=== PATIENT | female | born 1930 | race Hispanic/Latino ===

== ENCOUNTER 2017-11-01 08:55 | Observation (INO) | payer MEDICARE ==
[2017-11-01 09:12] VITALS: BMI 27.2
[2017-11-01] MEDS ORDERED: Sodium Chloride 0.9% 500 ML IV STA (09:37)
[2017-11-01 09:42] LABS: BASO # 0.02 K/mm3 (0.0-2.0); BASO % 0.3 % (0.0-3.0); GRAN # 6.1 (1.4-6.5); GRAN % 79.8 % (50.0-68.0); HEMOGLOBIN 15.6 g/dL (12.0-16.0); LYMPH # 0.7 (1.2-3.4); LYMPH % 8.9 % (22.0-35.0); MEAN CORPUSCULAR HEMOGLOBIN 30.4 pg (25.0-35.0); MEAN CORPUSCULAR HGB CONC 32.7 g/dl (31.0-37.0); MEAN PLATELET VOLUME 10.5 fl (7.0-11.0); MONO # 0.8 (0.1-0.6); RBC 5.13 10^6/uL (3.5-6.1); RED CELL DISTRIBUTION WIDTH 14.3 % (11.5-14.5); WHITE BLOOD COUNT 7.6 10^3/ul (4.5-11.0)
[2017-11-01 09:53] LABS: INR 2.11 (0.93-1.08); PROTHROMBIN TIME 24.6 SECONDS (9.4-12.5)
[2017-11-01 10:02] LABS: AMYLASE 67 U/L (35-125); CALCIUM 9.3 mg/dL (8.4-10.5); GFR AFRICAN-AMERICAN > 60; GFR NON-AFRICAN AMERICAN > 60; LIPASE 40 U/L (23-300)
[2017-11-01 10:08] LABS: ALB/GLOB RATIO 1.4 (1.1-1.8); ALBUMIN 4.1 g/dL (3.0-4.8); ALT/SGPT 28 U/L (7-56); AST/SGOT 39 U/L (14-36); BLOOD UREA NITROGEN 19 mg/dL (7-21)
[2017-11-01 10:10] LABS: B-TYPE NATRIURETIC PEPTIDE 1950 pg/mL (0-450)
[2017-11-01 10:12] LABS: TROPONIN I < 0.01 ng/mL
--- NOTE | 2017-11-01 10:15 | ED PDOC ---
Arrival/HPI - General Chief Complaint: GI Problem Time Seen by Provider: 11/01/17 09:27 Historian: Patient - History of Present Illness Narrative History of Present Illness (Text): 11/01/17 10:11 86-year-old female presents today with nausea and vomiting since yesterday.patient states she vomited multiple times yesterday. She denies chest pain or shortness of breath. Patient states she's been coughing slightly. She denies fevers or chills. She denies diarrhea. She is complaining of some vague upper abdominal pain. She denies chest pain or shortness of breath. She denies dizziness but is complaining of generalized weakness. Patient states she woke up this morning with a posterior headache. She denies blurred vision. She denies lower leg swelling. Denies urinary symptoms. no other complaints. Past Medical History - Provider Review Nursing Documentation Reviewed: Yes - Travel History Have you recently traveled outside [place] w/in the past 3 mons?: No - Infectious Disease Hx of Infectious Diseases: None - Reproductive Menopause: Yes - Cardiac Hx Cardiac Disorders: Yes Hx Atrial Fibrillation: Yes Hx Hypertension: Yes - Pulmonary Hx Respiratory Disorders: No - Neurological HX Cerebrovascular Accident: Yes (x2) - HEENT Hx Cataracts: Yes Other/Comment: [place]. bilateral hearing aid - Renal Hx Renal Disorder: No - Endocrine/Metabolic Hx Endocrine Disorders: No - Hematological/Oncological Hx Blood Transfusions: No Hx Blood Transfusion Reaction: No - Integumentary Hx Dermatological Disorder: No - Musculoskeletal/Rheumatological Hx Musculoskeletal Disorders: No - Gastrointestinal Hx Gastrointestinal Disorders: No - Genitourinary/Gynecological Hx Urinary Tract Infection: Yes - Psychiatric Hx Substance Use: No - Surgical History Hx Cholecystectomy: Yes - Anesthesia Hx Anesthesia: Yes Hx Anesthesia Reactions: No Hx Malignant Hyperthermia: No - Suicidal Assessment Feels Threatened In Home Enviroment: No Family/Social History - Physician Review Nursing Documentation Reviewed: Yes Family/Social History: Unknown Family HX Smoking Status: Former Smoker Hx Alcohol Use: No Hx Substance Use: No Allergies/Home Meds Allergies/Adverse Reactions: Allergies No Known Allergies Allergy (Verified 03/20/16 12:25) Home Medications: Home Meds Medication Instructions Recorded Confirmed Warfarin Sodium [Coumadin] 4 mg PO DAILY 09/13/15 11/01/17 [id number] [Cardizem] 30 mg PO QID 09/13/15 11/01/17 Losartan [Cozaar] 25 mg PO DAILY 03/20/16 11/01/17 Pantoprazole [Protonix EC Tab] 20 mg PO DAILY 11/01/17 11/01/17 Review of Systems - Review of Systems Constitutional: Fatigue. absent: Fevers ENT: absent: Sore Throat, Sinus Congestion Respiratory: Cough. absent: SOB Cardiovascular: absent: Chest Pain, Palpitations Gastrointestinal: Abdominal Pain, Nausea, Vomiting. absent: Constipation, Diarrhea Genitourinary Female: absent: Dysuria, Frequency, Hematuria Musculoskeletal: absent: Arthralgias, Back Pain, Neck Pain Skin: absent: Rash, Pruritis Neurological: absent: Headache, Dizziness Psychiatric: absent: Anxiety, Depression, Suicidal Ideation Physical Exam Vital Signs Reviewed: Yes Vital Signs Temp Pulse Resp BP Pulse Ox 11/01/17 12:20 110 H 122/90 11/01/17 11:24 127 H 18 133/74 95 11/01/17 08:56 99.1 F 125 H 20 138/98 H 95 Temperature: Afebrile Blood Pressure: Normal Pulse: Tachycardic Respiratory Rate: Normal Appearance: Positive for: Well-Appearing, Non-Toxic, Comfortable Pain Distress: None Mental Status: Positive for: Alert and Oriented X 3 - Systems Exam Head: Present: Atraumatic Mouth: Present: Moist Mucous Membranes Neck: Present: Normal Range of Motion Respiratory/Chest: Present: Clear to Auscultation, Good Air Exchange. No: Respiratory Distress, Accessory Muscle Use Cardiovascular: Present: Irregular Rhythm, Tachycardic Abdomen: Present: Tenderness (+ upper abdominal tenderness, ruq, epigastric), Normal Bowel Sounds. No: Distention, Rebound, Guarding Back: Present: Normal Inspection. No: CVA Tenderness, Midline Tenderness, Paraspinal Tenderness Upper Extremity: Present: Normal ROM Lower Extremity: Present: Normal ROM Neurological: Present: GCS=15, Speech Normal Skin: Present: Warm, Dry, Normal Color. No: Rashes Psychiatric: Present: Alert, Oriented x 3 Medical Decision Making ED Course and Treatment: 11/01/17 10:21 Patient is nontoxic well appearing; presenting with abdominal pain, n/v, weakness. CBC wnl CMP wnl Amylase wnl Lipase wnl Urinalysis trace blood, no leukocytes troponin; wnl bnp; elevated. CAT scan head; FINDINGS: HEMORRHAGE: No intracranial hemorrhage. BRAIN: There R old lacunar infarctions in the right caudate head, limon radiata, anterior basal ganglia, left basal ganglia, external capsule and anterior parietal subcortical white matter.. There are mild chronic microangiopathic changes. There is no mass, mass effect or abnormal extra-axial fluid collection. VENTRICLES: There is mild age-related global parenchymal volume loss and proportionate enlargement of the ventricles and cortical sulci. CALVARIUM: There is hyperostosis frontalis interna. PARANASAL SINUSES: There is moderate polypoid mucosal thickening in the right maxillary sinus, otherwise the included paranasal sinuses are predominantly clear. MASTOID AIR CELLS: Predominantly clear. OTHER FINDINGS: None. IMPRESSION: No acute intracranial abnormality. Old lacunar infarctions in the right caudate head, limon radiata, anterior basal ganglia, left basal ganglia, external capsule and anterior parietal subcortical white matter. Mild chronic microangiopathic changes and mild age-related global parenchymal volume loss. Chronic right maxillary sinusitis. ct abd/pelvis; FINDINGS: LOWER THORAX: There is dependent atelectasis in the lung bases. LIVER: The liver is normal in size and there is diffuse fatty infiltration. No gross lesion or ductal dilatation. GALLBLADDER AND BILE DUCTS: Surgically absent. PANCREAS: There is diffuse atrophy of the pancreas. No gross lesion or ductal dilatation. SPLEEN: Normal in size and appearance. ADRENALS: Mild thickening without discrete nodule. KIDNEYS AND URETERS: Normal in size and there is homogeneous enhancement without hydronephrosis. No solid mass. VASCULATURE: Atherosclerotic aortoiliac calcifications. No aortic aneurysm. BOWEL: The small bowel loops are normal in caliber. There is extensive sigmoid diverticulosis without CT evidence for acute diverticulitis APPENDIX: Normal appendix. PERITONEUM: No free fluid. No free air. LYMPH NODES: No enlarged lymph nodes. BLADDER: Grossly normal in appearance. REPRODUCTIVE: The uterus is normal in size. BONES: No acute fracture. Diffuse bone demineralization and multilevel degenerative disc disease. OTHER FINDINGS: There is a right inguinal hernia containing nonobstructed small bowel loops. There are bilateral fat containing inguinal hernias. IMPRESSION: 1. Right inguinal hernia containing nonobstructed small bowel loops. 2. Sigmoid diverticulosis without CT evidence for acute diverticulitis. 3. Fatty liver Patient reassessment:pt feeling better after zofran and 50cc NS bolus. hr remains elevated in Afib ranging from 110-135. pt given cardizem IV 5mg; HR improved now ranging from 90-95. pt denies cp or sob at present time. Discussed all results with patient and family in depth case discussed with dr. moncada as dr. villareal is patients PMD. accepts observational status admission to tele. will hold off on laxis as patient is without cp or sob at present time. cashier assistant is dr. oneill. Impression: rapid afib, elevated bnp, nausea/vomiting, abdominal pain admit observational status to tele. - Lab Interpretations Lab Results: 11/01/17 09:30 11/01/17 09:30 Lab Results 11/01/17 11:21: Urine Color Yellow, Urine Appearance Clear, Urine pH 7.0, Ur Specific [place] 1.010, Urine Protein Negative, Urine Glucose (UA) Negative, Urine Ketones Negative, Urine Blood Trace-lysed H, Urine Nitrate Negative, Urine Bilirubin Negative, Urine Urobilinogen 1.0 H, Ur Leukocyte Esterase Negative, Urine RBC 0 - 2, Urine WBC 0 - 2, Ur Epithelial Cells 0 - 2, Urine Bacteria Small 11/01/17 10:39: Influenza Typ A,B (EIA) Negative for flu a/b 11/01/17 09:30: WBC 7.6 D, RBC 5.13, Hgb 15.6, Hct 47.7, MCV 93.0, MCH 30.4, MCHC 32.7, RDW 14.3, Plt Count 153, MPV 10.5, Gran % 79.8 H, Lymph % (Auto) 8.9 L, [place] % (Auto) 11.0 H, Eos % (Auto) 0.0 L, Baso % (Auto) 0.3, Gran # 6.10, Lymph # (Auto) 0.7 L, [place] # (Auto) 0.8 H, Eos # (Auto) 0.0, Baso # (Auto) 0.02 11/01/17 09:30: Sodium 140, Potassium 5.0, Chloride 104, Carbon Dioxide 24, Anion Gap 17, BUN 19, Creatinine 0.8, Est GFR ( Amer) > 60, Est GFR (Non- Af Amer) > 60, Random Glucose 104, Calcium 9.3, Total Bilirubin 1.8 H, AST 39 H , ALT 28, Alkaline Phosphatase 83, Lactate Dehydrogenase 875 H, Total Creatine Kinase 115, Troponin I < 0.01 D, NT-Pro-B Natriuret Pep 1950 H, Total Protein 7.0, Albumin 4.1, Globulin 2.9, Albumin/Globulin Ratio 1.4, Amylase 67, Lipase 40 11/01/17 09:30: PT 24.6 H, INR 2.11 H, APTT 37.0 H - RAD Interpretation Radiology Orders: 11/01/17 09:28 CHEST PORTABLE [RAD] Stat 11/01/17 09:36 ABD & PELVIS IV CONTRAST ONLY [CT] Stat HEAD W/O CONTRAST [CT] Stat - Medication Orders Current Medication Orders: Discontinued Medications Diltiazem HCl (Cardizem) 5 mg IVP STAT STA Stop: 11/01/17 12:12 Last Admin: 11/01/17 12:20 Dose: 5 mg IVP Administration Document 11/01/17 12:20 SRE (Rec: 11/01/17 12:20 SRE [id number]) Charges for Administration # of IVP Administrations 1 NOV Pulse and Blood Pressure Document 11/01/17 12:20 SRE (Rec: 11/01/17 12:20 SRE [id number]) Pulse Pulse Rate (60-90 beats/min) 110 Blood Pressure Blood Pressure (100/60-150/90 mm Hg) 122/90 Sodium Chloride (Sodium Chloride 0.9%) 500 mls @ 999 mls/hr IV .Q31M STA Stop: 11/01/17 10:07 Last Admin: 11/01/17 10:07 Dose: 999 mls/hr eMAR Start Stop Document 11/01/17 10:07 SRE (Rec: 11/01/17 10:07 SRE [id number]) Intravenous Solution Start Date 11/01/17 Start Time 10:07 End Date 11/01/17 End time 10:40 Total Infusion Time 33 Ondansetron HCl (Zofran Inj) 4 mg IVP STAT STA Stop: 11/01/17 09:38 Last Admin: 11/01/17 10:07 Dose: 4 mg IVP Administration Document 11/01/17 10:07 SRE (Rec: 11/01/17 10:07 SRE [id number]) Charges for Administration # of IVP Administrations 1 Disposition/Present on Arrival - Present on Arrival Any Indicators Present on Arrival: No History of DVT/PE: No History of Uncontrolled Diabetes: No Urinary Catheter: No History of Decub. Ulcer: No History Surgical Site Infection Following: None - Disposition Have Diagnosis and Disposition been Completed?: Yes Diagnosis: Elevated brain natriuretic peptide (BNP) level, Rapid atrial fibrillation, Nausea and vomiting, Abdominal pain Disposition: HOSPITALIZED Disposition Time: 12:53 Patient Plan: Observation Condition: FAIR Referrals: Jose Roberto Villareal MD [Primary Care Provider] - Follow up with primary Forms: [employer] (Stateless)
[2017-11-01] MEDS ORDERED: Iohexol 350 MG/100 ML VIAL ONE (10:42)
--- NOTE | 2017-11-01 10:51 | RAD ---
HISTORY: nausea/vomiting COMPARISON: 07/20/2016. FINDINGS: LUNGS: The lungs are clear. PLEURA: No significant pleural effusion identified, no pneumothorax apparent. CARDIOVASCULAR: The heart is enlarged. OSSEOUS STRUCTURES: No significant abnormalities. VISUALIZED UPPER ABDOMEN: Normal. OTHER FINDINGS: None. IMPRESSION: No active pulmonary disease.
[2017-11-01 11:32] LABS: URINE BILIRUBIN NEGATIVE (NEGATIVE); URINE BLOOD TRACE-LYSED (NEGATIVE); URINE GLUCOSE (UA) NEGATIVE (NEGATIVE); URINE LEUKOCYTE ESTERASE NEGATIVE Leu/uL (NEGATIVE); URINE NITRATE NEGATIVE (NEGATIVE); URINE PROTEIN NEGATIVE mg/dL (<30 mg/dL)
--- NOTE | 2017-11-01 11:32 | CT ---
PROCEDURE: CT HEAD WITHOUT CONTRAST. HISTORY: Headache COMPARISON: 07/20/2016. TECHNIQUE: Axial computed tomography images were obtained through the head/brain without intravenous contrast. Radiation dose: Total exam DLP = 779.27 mGy-cm. This CT exam was performed using one or more of the following dose reduction techniques: Automated exposure control, adjustment of the mA and/or kV according to patient size, and/or use of iterative reconstruction technique. FINDINGS: HEMORRHAGE: No intracranial hemorrhage. BRAIN: There R old lacunar infarctions in the right caudate head, limon radiata, anterior basal ganglia, left basal ganglia, external capsule and anterior parietal subcortical white matter.. There are mild chronic microangiopathic changes. There is no mass, mass effect or abnormal extra-axial fluid collection. VENTRICLES: There is mild age-related global parenchymal volume loss and proportionate enlargement of the ventricles and cortical sulci. CALVARIUM: There is hyperostosis frontalis interna. PARANASAL SINUSES: There is moderate polypoid mucosal thickening in the right maxillary sinus, otherwise the included paranasal sinuses are predominantly clear. MASTOID AIR CELLS: Predominantly clear. OTHER FINDINGS: None. IMPRESSION: No acute intracranial abnormality. Old lacunar infarctions in the right caudate head, limon radiata, anterior basal ganglia, left basal ganglia, external capsule and anterior parietal subcortical white matter. Mild chronic microangiopathic changes and mild age-related global parenchymal volume loss. Chronic right maxillary sinusitis.
[2017-11-01 11:35] LABS: URINE APPEARANCE CLEAR (CLEAR); URINE COLOR YELLOW (YELLOW)
--- NOTE | 2017-11-01 11:43 | CT ---
PROCEDURE: CT Abdomen and Pelvis with contrast HISTORY: Abdominal pain COMPARISON: 07/20/2016. TECHNIQUE: CT scan of the abdomen and pelvis was performed after intravenous administration of contrast. Oral contrast was not administered. Coronal and sagittal reformatted images were obtained. Contrast dose: 100 mL Omnipaque 350 Radiation dose: Total exam DLP = 462.48 mGy-cm. This CT exam was performed using one or more of the following dose reduction techniques: Automated exposure control, adjustment of the mA and/or kV according to patient size, and/or use of iterative reconstruction technique. FINDINGS: LOWER THORAX: There is dependent atelectasis in the lung bases. LIVER: The liver is normal in size and there is diffuse fatty infiltration. No gross lesion or ductal dilatation. GALLBLADDER AND BILE DUCTS: Surgically absent. PANCREAS: There is diffuse atrophy of the pancreas. No gross lesion or ductal dilatation. SPLEEN: Normal in size and appearance. ADRENALS: Mild thickening without discrete nodule. KIDNEYS AND URETERS: Normal in size and there is homogeneous enhancement without hydronephrosis. No solid mass. VASCULATURE: Atherosclerotic aortoiliac calcifications. No aortic aneurysm. BOWEL: The small bowel loops are normal in caliber. There is extensive sigmoid diverticulosis without CT evidence for acute diverticulitis APPENDIX: Normal appendix. PERITONEUM: No free fluid. No free air. LYMPH NODES: No enlarged lymph nodes. BLADDER: Grossly normal in appearance. REPRODUCTIVE: The uterus is normal in size. BONES: No acute fracture. Diffuse bone demineralization and multilevel degenerative disc disease. OTHER FINDINGS: There is a right inguinal hernia containing nonobstructed small bowel loops. There are bilateral fat containing inguinal hernias. IMPRESSION: 1. Right inguinal hernia containing nonobstructed small bowel loops. 2. Sigmoid diverticulosis without CT evidence for acute diverticulitis. 3. Fatty liver.
[2017-11-01 11:53] LABS: URINE BACTERIA SMALL (NEG); URINE EPITHELIAL CELLS 0 - 2 /hpf (0-5); URINE RBC 0 - 2 /hpf (0-2); URINE WBC 0 - 2 /hpf (0-6)
--- NOTE | 2017-11-01 13:19 | CP.PCM.HP ---
Addendum entered and electronically signed by Jessica Castellano DO 11/01/17 16:17 : Hold lipitor for elevated LFT and TB Addendum entered and electronically signed by Jessica Castellano DO 11/01/17 16:14 : For YANIV, Put CPAP at 3cmH20 FiO2 40% titrate to SaO2>92% Original Note: <Jessica Castellano - Last Filed: 11/01/17 15:57> History of Present Illness - History of Present Illness History of Present Illness: PGY-[address] Johnson Observation: intractable vomiting and A-fib RVR Ms Landaverde, 86 F, with PMHx CVA, Afib on cardizem and warfarin, YANIV on CPAP, GERD , complained of nausea and vomiting x 1 day. Yesterday morning, as pt got out of bed, she coughed 2-3 times, then felt her stomach became "bubbly", and vomited. The vomitus was bilous, non bloody. Pt vomited multiple times yesterday , could not tolerate food and liquid, only drank 2 cups of tea, but vomited back out. When asked about unusual food, she said "beets" and "pork from the refrigerator." Pt denies sick contact/recent travel. She went to [facility] for chair yoga every Friday to friday. Pt has never had colonoscopy or endoscopy. Upon ED arrival, T 99.1 oral. HR 125. EKG: A-fib RVR 107 CBC wnl. INR 2.11 CMP sig Total bilirubin 1.8. AST 38. Normal ALT. Lactate dehydrogenase 875. BNP 1950 amylase, lipase wnl U/A neg. flu neg CXR: neg CT head: No acute intracranial abnormality. (+) Old lacunar infarctions in the right caudate head, limon radiata, anterior basal ganglia, left basal ganglia, external capsule and anterior parietal subcortical white matter. Mild chronic microangiopathic changes and mild age-related global parenchymal volume loss. Chronic right maxillary sinusitis. CT abd/Pelvis: R inguinal hernia containing nonobstructing small bowel loops, bilateral fat containing inguinal hernia. Sigmoid diverticulosis. No diverticulitis. Fatty liver Pt recieved NS 500cc bolus, zofran, and cardizem IV 5. When examined pt in the ED, CONTRERAS/N/V resolved. Pt is enjoying lunch. ROS: Denies fever, chills, blurr vision, dizziness. (+) Headache at b/l occiput - resolved Denies chest pain, SOB, palpitation. (+) abdominal pain. (+) N/V. Denies diarrha. (+) constipation on prune juice at home. No hemaetmesis/melena/hematochezia/dark stool. Denies dysuria, urinary frequency, leg edema PMHx: CVA x 2 no residual weakness except unsteady gait Afib on cardizem and warfarin HTN, hypercholesterolemia Obstructive sleep apnea on CPAP [place] of hearing, b/l hearing aid GERD PSHx: cholecystectomy Family Hx: none Social Hx: former smoker quit 45 years ago, denies alcohol and other drug use Allergy: none Meds: Warfarin 4 Cardizem 30 QID Losartan 25 daily Protonix PMD: [place] [employer] Counselor: Dr Guzman Commercial Director: Dr Greene Neurologist: Dr. Delaney Present on Admission - Present on Admission Any Indicators Present on Admission: No Review of Systems - Review of Systems All systems: reviewed and no additional remarkable complaints except Review of Systems: as in HPI Past Patient History - Infectious Disease Hx of Infectious Diseases: None - Past Social History Smoking Status: Former Smoker - CARDIAC Hx Cardiac Disorders: Yes Hx Atrial Fibrillation: Yes Hx Hypertension: Yes - PULMONARY Hx Respiratory Disorders: No - NEUROLOGICAL HX Cerebrovascular Accident: Yes (x2) - HEENT Hx Cataracts: Yes Other/Comment: [place]. bilateral hearing aid - RENAL Hx Chronic Kidney Disease: No - ENDOCRINE/METABOLIC Hx Endocrine Disorders: No - HEMATOLOGICAL/ONCOLOGICAL Hx Blood Transfusions: No Hx Blood Transfusion Reaction: No - INTEGUMENTARY Hx Dermatological Problems: No - MUSCULOSKELETAL/RHEUMATOLOGICAL Hx Musculoskeletal Disorders: No - GASTROINTESTINAL Hx Gastrointestinal Disorders: No - GENITOURINARY/GYNECOLOGICAL Hx Urinary Tract Infection: Yes - PSYCHIATRIC Hx Substance Use: No - SURGICAL HISTORY Hx Cholecystectomy: Yes - ANESTHESIA Hx Anesthesia: Yes Hx Anesthesia Reactions: No Hx Malignant Hyperthermia: No Meds Allergies/Adverse Reactions: Allergies Allergy/AdvReac Type Severity Reaction Status Date / Time No Known Allergies Allergy Verified 03/20/16 12:25 Physical Exam - Constitutional Appears: No Acute Distress - Head Exam Head Exam: ATRAUMATIC, NORMAL INSPECTION, NORMOCEPHALIC - Eye Exam Eye Exam: EOMI, Normal appearance, PERRL. absent: Scleral icterus Pupil Exam: NORMAL ACCOMODATION - ENT Exam ENT Exam: Mucous Membranes Moist - Neck Exam Additional comments: supple - Respiratory Exam Respiratory Exam: Clear to Auscultation Bilateral, NORMAL BREATHING PATTERN. absent: Rales, Rhonchi, Wheezes - Cardiovascular Exam Cardiovascular Exam: Tachycardia, Irregular Rhythm, +S1, +S2 - GI/Abdominal Exam GI & Abdominal Exam: Normal Bowel Sounds, Soft. absent: Distended, Guarding, Rigid, Tenderness - Exam Additional comments: No induration or lump at inguinal/loin area b/l - Extremities Exam Extremities exam: Positive for: normal capillary refill, pedal pulses present. Negative for: calf tenderness, pedal edema - Back Exam Back exam: absent: CVA tenderness (L), CVA tenderness (R) - Neurological Exam Neurological exam: Alert, CN II-XII Intact, Oriented x3 - Psychiatric Exam Psychiatric exam: Normal Affect, Normal Mood - Skin Skin Exam: Dry, Warm Results - Vital Signs Recent Vital Signs: Last Vital Signs Temp 99.1 F 11/01/17 08:56 Pulse 110 H 11/01/17 12:20 Resp 18 11/01/17 11:24 BP 122/90 11/01/17 12:20 Pulse Ox 95 11/01/17 11:24 - Labs Result Diagrams: 11/01/17 09:30 11/01/17 09:30 Assessment & Plan - Assessment and Plan (Free Text) Plan: Ms Landaverde, 86 F, with PMHx CVA, Afib on cardizem and warfarin, HTN/HLD, complained of intractable vomiting x 1 day with food and liquid intolerance. Denied f/c, abdominal pain, sick contact, change of diet, blood in stool. Never had endoscopy/colonoscopy. CMP sig Total bilirubin 1.8. AST 38. Normal ALT. Lactate dehydrogenase 875. BNP 1950. amylase, lipase wnl. CT abd/Pelvis showed R inguinal hernia containing nonobstructing small bowel loops, bilateral fat containing inguinal hernia. Sigmodi diverticulois. No diverticulitis. Fatty liver. Pt was found to have a-fib rvr @ 120s and received cardizem 5mg IV x 1. Intractable vomiting likely viral - HHD. Encourage adequate hydration - Zofran PRN - continue monitor electrolytes A-fib RVR, likely due to skipped med from vomiting - put back on home cardizem 30 QID - Warfarin 4mg. Daily INR. Goal 2.5-3 - tele monitory Transaminitis with hyperbilirubinemia - Likely from fatty liver - continue to trend LFT and bilirubin. INR is elevated due to warfarin. Albumin is 4.1 - May consider abdominal ultrasound to r/o CBD obstruction if LFT does not trend down. - pt refuses GI consult, will revisit issue pending clinical course R inguinal hernia containing nonobstructing small bowel loops, asymptomatic - continue observe. No need for surgery. Gerd - home protonix HTN - home losartan 25 daily PVX - warfarin and protonix Discharge planning - PT screen. Observation s/r/d/w Dr. Johnson <Kyleigh Johnson - Last Filed: 11/02/17 11:11> Results - Vital Signs Recent Vital Signs: Last Vital Signs Temp 98.9 F 11/02/17 09:00 Pulse 71 11/02/17 09:58 Resp 16 11/02/17 09:00 BP 145/98 H 11/02/17 09:58 Pulse Ox 96 11/02/17 09:00 - Labs Result Diagrams: 11/02/17 07:00 11/02/17 07:00 Labs: Laboratory Results - last 24 hr 11/02/17 11/02/17 11/02/17 07:00 07:00 07:00 WBC 4.4 L D RBC 4.95 Hgb 14.7 Hct 46.0 MCV 92.9 MCH 29.7 MCHC 32.0 RDW 14.3 Plt Count 140 MPV 10.8 Gran % 53.3 Lymph % (Auto) 28.3 [place] % (Auto) 17.2 H Eos % (Auto) 0.5 L Baso % (Auto) 0.7 Gran # 2.32 Lymph # (Auto) 1.2 [place] # (Auto) 0.8 H Eos # (Auto) 0.0 Baso # (Auto) 0.03 PT 23.5 H INR 2.01 H Sodium 141 Potassium 3.8 Chloride 106 Carbon Dioxide 24 Anion Gap 15 BUN 17 Creatinine 0.8 Est GFR ( Amer) > 60 Est GFR (Non-Af Amer) > 60 Random Glucose 92 Calcium 9.1 Total Bilirubin 1.1 AST 28 ALT 33 Alkaline Phosphatase 88 Total Protein 6.1 Albumin 3.4 Globulin 2.6 Albumin/Globulin Ratio 1.3 Attending/Attestation - Attestation I have personally seen and examined this patient.: Yes I have fully participated in the care of the patient.: Yes I have reviewed all pertinent clinical information: Yes Notes (Text): 11/02/17 11:07 Attending note; Patient seen and examined with resident in ER. Patient is 86-year-old female with PMH of stroke, Afib on cardizem and warfarin, sleep apnea on CPAP is admitted with nausea and vomiting x 1 day. Denies any fevers, chills. Currently denies any nausea, vomiting. CT abdomen showed inguinal hernia and diverticulosis. clinical examination is normal. Started on regular diet. A. fib; increase heart rate since the patient did not tolerate by mouth meds yesterday and . Got 1 dose of IV Cardizem. Currently heart rate is stable. Elevated BNP. But no signs of heart failure. Observed overnight for any GI symptoms. Monitored in telemetry floor. Patient walks with a cane. Upon discharge the patient will follow-up with PMD .
[2017-11-01] MEDS ORDERED: Pneumococcal 23-Valent Vaccine IM ONE (15:21)
[2017-11-01] MEDS ORDERED: Influenza Vaccine 60 mcg/0.5 mL SYR (4YR UP) IM ONE (15:21)
--- NOTE | 2017-11-01 19:02 | CARD ---
APPROVED REPORT EKG Measurement Heart [id number] <Conclusion> Atrial fibrillation with rapid ventricular response with premature ventricular or aberrantly conducted complexes Nonspecific ST and T wave abnormality, probably digitalis effect Abnormal ECG
[2017-11-01] MEDS: guaiFENesin 100 mg/5 ml Syrup UD PO PRN (21:08)
[2017-11-02 05:37] VITALS: O2SAT 96
[2017-11-02] MEDS ORDERED: Pantoprazole 20 mg EC Tab PO SCH (07:00)
[2017-11-02 07:24] LABS: BASO # 0.03 K/mm3 (0.0-2.0); BASO % 0.7 % (0.0-3.0); EOS % 0.5 % (1.5-5.0); GRAN # 2.32 (1.4-6.5); GRAN % 53.3 % (50.0-68.0); HEMOGLOBIN 14.7 g/dL (12.0-16.0); LYMPH # 1.2 (1.2-3.4); LYMPH % 28.3 % (22.0-35.0); MEAN CELL VOLUME 92.9 fl (80.0-105.0); MEAN CORPUSCULAR HEMOGLOBIN 29.7 pg (25.0-35.0); MEAN PLATELET VOLUME 10.8 fl (7.0-11.0); MONO # 0.8 (0.1-0.6); MONO % 17.2 % (1.0-6.0); RBC 4.95 10^6/uL (3.5-6.1); RED CELL DISTRIBUTION WIDTH 14.3 % (11.5-14.5); WHITE BLOOD COUNT 4.4 10^3/ul (4.5-11.0)
[2017-11-02 07:33] LABS: INR 2.01 (0.93-1.08); PROTHROMBIN TIME 23.5 SECONDS (9.4-12.5)
[2017-11-02 07:49] LABS: ALB/GLOB RATIO 1.3 (1.1-1.8); ALBUMIN 3.4 g/dL (3.0-4.8); ALT/SGPT 33 U/L (7-56); AST/SGOT 28 U/L (14-36); BLOOD UREA NITROGEN 17 mg/dL (7-21); CALCIUM 9.1 mg/dL (8.4-10.5); GFR AFRICAN-AMERICAN > 60; GFR NON-AFRICAN AMERICAN > 60
[2017-11-02] MEDS: guaiFENesin 100 mg/5 ml Syrup UD PO PRN (09:59)
[2017-11-02 10:00] VITALS: BP 145/98; PULSE 71
[2017-11-02 10:48] VITALS: RESP 16; TEMP 98.9
--- NOTE | 2017-11-02 12:40 | CP.PCM.DIS ---
<Charles Cline S - Last Filed: 11/02/17 12:40> Provider - Provider Date of Admission: 11/01/17 12:46 Attending physician: Kyleigh Johnson MD Primary care physician: Jose Roberto Hall MD Consults: Cardiology: Dr. Bartlett Time Spent in preparation of Discharge (in minutes): 40 Diagnosis - Discharge Diagnosis (1) Atrial fibrillation with rapid ventricular response Status: Resolved Priority: High (2) Intractable nausea and vomiting Status: Resolved Priority: High (3) History of atrial fibrillation Status: Chronic Priority: Medium (4) History of gastroesophageal reflux (GERD) Status: Chronic Priority: Low (5) History of hypertension Status: Chronic Priority: Low Hospital Course - Lab Results Lab Results: Most Recent Lab Values WBC 4.4 10^3/ul (4.5-11.0) L D 11/02/17 07:00 RBC 4.95 10^6/uL (3.5-6.1) 11/02/17 07:00 Hgb 14.7 g/dL (12.0-16.0) 11/02/17 07:00 Hct 46.0 % (36.0-48.0) 11/02/17 07:00 MCV 92.9 fl (80.0-105.0) 11/02/17 07:00 MCH 29.7 pg (25.0-35.0) 11/02/17 07:00 MCHC 32.0 g/dl (31.0-37.0) 11/02/17 07:00 RDW 14.3 % (11.5-14.5) 11/02/17 07:00 Plt Count 140 10^3/uL (120.0-450.0) 11/02/17 07:00 MPV 10.8 fl (7.0-11.0) 11/02/17 07:00 Gran % 53.3 % (50.0-68.0) 11/02/17 07:00 Lymph % (Auto) 28.3 % (22.0-35.0) 11/02/17 07:00 Williams % (Auto) 17.2 % (1.0-6.0) H 11/02/17 07:00 Eos % (Auto) 0.5 % (1.5-5.0) L 11/02/17 07:00 Baso % (Auto) 0.7 % (0.0-3.0) 11/02/17 07:00 Gran # 2.32 (1.4-6.5) 11/02/17 07:00 Lymph # (Auto) 1.2 (1.2-3.4) 11/02/17 07:00 Williams # (Auto) 0.8 (0.1-0.6) H 11/02/17 07:00 Eos # (Auto) 0.0 (0.0-0.7) 11/02/17 07:00 Baso # (Auto) 0.03 K/mm3 (0.0-2.0) 11/02/17 07:00 PT 23.5 SECONDS (9.4-12.5) H 11/02/17 07:00 INR 2.01 (0.93-1.08) H 11/02/17 07:00 APTT 37.0 Seconds (25.1-36.5) H 11/01/17 09:30 Sodium 141 mmol/L (132-148) 11/02/17 07:00 Potassium 3.8 mmol/L (3.6-5.0) 11/02/17 07:00 Chloride 106 mmol/L (98-107) 11/02/17 07:00 Carbon Dioxide 24 mmol/L (21-33) 11/02/17 07:00 Anion Gap 15 (10-20) 11/02/17 07:00 BUN 17 mg/dL (7-21) 11/02/17 07:00 Creatinine 0.8 mg/dl (0.7-1.2) 11/02/17 07:00 Est GFR ( Amer) > 60 11/02/17 07:00 Est GFR (Non-Af Amer) > 60 11/02/17 07:00 Random Glucose 92 mg/dL (70-110) 11/02/17 07:00 Calcium 9.1 mg/dL (8.4-10.5) 11/02/17 07:00 Total Bilirubin 1.1 mg/dL (0.2-1.3) 11/02/17 07:00 AST 28 U/L (14-36) 11/02/17 07:00 ALT 33 U/L (7-56) 11/02/17 07:00 Alkaline Phosphatase 88 U/L (38-126) 11/02/17 07:00 Lactate Dehydrogenase 875 U/L (333-699) H 11/01/17 09:30 Total Creatine Kinase 115 U/L (35-230) 11/01/17 09:30 Troponin I < 0.01 ng/mL D 11/01/17 09:30 NT-Pro-B Natriuret Pep 1950 pg/mL (0-450) H 11/01/17 09:30 Total Protein 6.1 g/dL (5.8-8.3) 11/02/17 07:00 Albumin 3.4 g/dL (3.0-4.8) 11/02/17 07:00 Globulin 2.6 gm/dL 11/02/17 07:00 Albumin/Globulin Ratio 1.3 (1.1-1.8) 11/02/17 07:00 Amylase 67 U/L (35-125) 11/01/17 09:30 Lipase 40 U/L (23-300) 11/01/17 09:30 Urine Color Yellow (YELLOW) 11/01/17 11:21 Urine Appearance Clear (CLEAR) 11/01/17 11:21 Urine pH 7.0 (4.7-8.0) 11/01/17 11:21 Ur Specific Keyser 1.010 (1.005-1.035) 11/01/17 11:21 Urine Protein Negative mg/dL (<30 mg/dL) 11/01/17 11:21 Urine Glucose (UA) Negative mg/dL (NEGATIVE) 11/01/17 11:21 Urine Ketones Negative mg/dL (NEGATIVE) 11/01/17 11:21 Urine Blood Trace-lysed (NEGATIVE) H 11/01/17 11:21 Urine Nitrate Negative (NEGATIVE) 11/01/17 11:21 Urine Bilirubin Negative (NEGATIVE) 11/01/17 11:21 Urine Urobilinogen 1.0 E.U./dL (<1 E.U./dL) H 11/01/17 11:21 Ur Leukocyte Esterase Negative Monica/uL (NEGATIVE) 11/01/17 11:21 Urine RBC 0 - 2 /hpf (0-2) 11/01/17 11:21 Urine WBC 0 - 2 /hpf (0-6) 11/01/17 11:21 Ur Epithelial Cells 0 - 2 /hpf (0-5) 11/01/17 11:21 Urine Bacteria Small (NEG) 11/01/17 11:21 Influenza Typ A,B (EIA) Negative for flu a/b (NEGATIVE) 11/01/17 10:39 - Hospital Course Hospital Course: Initial History of Present Illness on 11/02/17: "Ms Landaverde, 86 F, with PMHx CVA, Afib on cardizem and warfarin, YANIV on CPAP, GERD, complained of nausea and vomiting x 1 day. Yesterday morning, as pt got out of bed, she coughed 2-3 times, then felt her stomach became "bubbly", and vomited. The vomitus was bilous, non bloody. Pt vomited multiple times yesterday , could not tolerate food and liquid, only drank 2 cups of tea, but vomited back out. When asked about unusual food, she said "beets" and "pork from the refrigerator." Pt denies sick contact/recent travel. She [facility] every Friday to friday. Pt has never had colonoscopy or endoscopy." Hospital Course: Patient admitted for atrial fibrillation with rapid ventricular response as well as intractable nausea and vomiting. The intractable nausea/vomiting resolved in the ED and was able to tolerate diet. Patient's rapid a-fib resolved once she was able to tolerate her oral home medications. Patient witnessed ambulating with her cane without any respiratory distress or hypoxia. Patient states that she already has home physical therapy services. Patient's daughter Missy was called and notified of discharge. Patient stable for discharge and is to follow up with her PMD Dr. Hall and train announcer Dr. Greene. This is a summary of the hospital course. For more information, refer to the medical records. Discharge Exam - Head Exam Head Exam: ATRAUMATIC, NORMOCEPHALIC - Eye Exam Eye Exam: EOMI, Normal appearance - ENT Exam ENT Exam: Mucous Membranes Moist - Respiratory Exam Respiratory Exam: Clear to PA & Lateral, NORMAL BREATHING PATTERN. absent: Rales, Rhonchi, Wheezes - Cardiovascular Exam Cardiovascular Exam: Irregular Rhythm, +S1, +S2. absent: Tachycardia, JVD - GI/Abdominal Exam GI & Abdominal Exam: Normal Bowel Sounds, Soft. absent: Distended, Guarding, Tenderness - Extremities Exam Extremities exam: pedal pulses present - Neurological Exam Neurological exam: Alert, CN II-XII Intact, Oriented x3 - Psychiatric Exam Psychiatric exam: Normal Affect, Normal Mood - Skin Skin Exam: Dry, Warm Discharge Plan - Follow Up Plan Condition: STABLE Disposition: HOME/ ROUTINE Instructions: Atrial Fibrillation (DC), Heart Failure, Adult (DC), Acute Abdomen (Belly Pain), Adult (DC), Nausea and Vomiting, Adult (DC), Cough, Adult (DC) Additional Instructions: 1. Please resume all of your home medications. 2. Stay hydrated and avoid any foods that may upset your stomach. 3. Please follow up with Dr. Hall within a week. 4. Please follow up with Dr. Greene at your regularly scheduled appointments. 5. Continue with your home physical therapy. 6. If there are any new or worsening symptoms, please go to the nearest emergency room. Referrals: Srinivasa Greene MD [Staff Provider] - Jose Roberto Hall MD [Primary Care Provider] - <Kyleigh Johnson - Last Filed: 11/02/17 13:26> Provider - Provider Date of Admission: 11/01/17 12:46 Attending physician: Kyleigh Johnson MD Primary care physician: Jose Roberto Hall MD Hospital Course - Lab Results Lab Results: Most Recent Lab Values WBC 4.4 10^3/ul (4.5-11.0) L D 11/02/17 07:00 RBC 4.95 10^6/uL (3.5-6.1) 11/02/17 07:00 Hgb 14.7 g/dL (12.0-16.0) 11/02/17 07:00 Hct 46.0 % (36.0-48.0) 11/02/17 07:00 MCV 92.9 fl (80.0-105.0) 11/02/17 07:00 MCH 29.7 pg (25.0-35.0) 11/02/17 07:00 MCHC 32.0 g/dl (31.0-37.0) 11/02/17 07:00 RDW 14.3 % (11.5-14.5) 11/02/17 07:00 Plt Count 140 10^3/uL (120.0-450.0) 11/02/17 07:00 MPV 10.8 fl (7.0-11.0) 11/02/17 07:00 Gran % 53.3 % (50.0-68.0) 11/02/17 07:00 Lymph % (Auto) 28.3 % (22.0-35.0) 11/02/17 07:00 Williams % (Auto) 17.2 % (1.0-6.0) H 11/02/17 07:00 Eos % (Auto) 0.5 % (1.5-5.0) L 11/02/17 07:00 Baso % (Auto) 0.7 % (0.0-3.0) 11/02/17 07:00 Gran # 2.32 (1.4-6.5) 11/02/17 07:00 Lymph # (Auto) 1.2 (1.2-3.4) 11/02/17 07:00 Williams # (Auto) 0.8 (0.1-0.6) H 11/02/17 07:00 Eos # (Auto) 0.0 (0.0-0.7) 11/02/17 07:00 Baso # (Auto) 0.03 K/mm3 (0.0-2.0) 11/02/17 07:00 PT 23.5 SECONDS (9.4-12.5) H 11/02/17 07:00 INR 2.01 (0.93-1.08) H 11/02/17 07:00 APTT 37.0 Seconds (25.1-36.5) H 11/01/17 09:30 Sodium 141 mmol/L (132-148) 11/02/17 07:00 Potassium 3.8 mmol/L (3.6-5.0) 11/02/17 07:00 Chloride 106 mmol/L (98-107) 11/02/17 07:00 Carbon Dioxide 24 mmol/L (21-33) 11/02/17 07:00 Anion Gap 15 (10-20) 11/02/17 07:00 BUN 17 mg/dL (7-21) 11/02/17 07:00 Creatinine 0.8 mg/dl (0.7-1.2) 11/02/17 07:00 Est GFR ( Amer) > 60 11/02/17 07:00 Est GFR (Non-Af Amer) > 60 11/02/17 07:00 Random Glucose 92 mg/dL (70-110) 11/02/17 07:00 Calcium 9.1 mg/dL (8.4-10.5) 11/02/17 07:00 Total Bilirubin 1.1 mg/dL (0.2-1.3) 11/02/17 07:00 AST 28 U/L (14-36) 11/02/17 07:00 ALT 33 U/L (7-56) 11/02/17 07:00 Alkaline Phosphatase 88 U/L (38-126) 11/02/17 07:00 Lactate Dehydrogenase 875 U/L (333-699) H 11/01/17 09:30 Total Creatine Kinase 115 U/L (35-230) 11/01/17 09:30 Troponin I < 0.01 ng/mL D 11/01/17 09:30 NT-Pro-B Natriuret Pep 1950 pg/mL (0-450) H 11/01/17 09:30 Total Protein 6.1 g/dL (5.8-8.3) 11/02/17 07:00 Albumin 3.4 g/dL (3.0-4.8) 11/02/17 07:00 Globulin 2.6 gm/dL 11/02/17 07:00 Albumin/Globulin Ratio 1.3 (1.1-1.8) 11/02/17 07:00 Amylase 67 U/L (35-125) 11/01/17 09:30 Lipase 40 U/L (23-300) 11/01/17 09:30 Urine Color Yellow (YELLOW) 11/01/17 11:21 Urine Appearance Clear (CLEAR) 11/01/17 11:21 Urine pH 7.0 (4.7-8.0) 11/01/17 11:21 Ur Specific Keyser 1.010 (1.005-1.035) 11/01/17 11:21 Urine Protein Negative mg/dL (<30 mg/dL) 11/01/17 11:21 Urine Glucose (UA) Negative mg/dL (NEGATIVE) 11/01/17 11:21 Urine Ketones Negative mg/dL (NEGATIVE) 11/01/17 11:21 Urine Blood Trace-lysed (NEGATIVE) H 11/01/17 11:21 Urine Nitrate Negative (NEGATIVE) 11/01/17 11:21 Urine Bilirubin Negative (NEGATIVE) 11/01/17 11:21 Urine Urobilinogen 1.0 E.U./dL (<1 E.U./dL) H 11/01/17 11:21 Ur Leukocyte Esterase Negative Monica/uL (NEGATIVE) 11/01/17 11:21 Urine RBC 0 - 2 /hpf (0-2) 11/01/17 11:21 Urine WBC 0 - 2 /hpf (0-6) 11/01/17 11:21 Ur Epithelial Cells 0 - 2 /hpf (0-5) 11/01/17 11:21 Urine Bacteria Small (NEG) 11/01/17 11:21 Influenza Typ A,B (EIA) Negative for flu a/b (NEGATIVE) 11/01/17 10:39 Attending/Attestation - Attestation I have personally seen and examined this patient.: Yes I have fully participated in the care of the patient.: Yes I have reviewed all pertinent clinical information, including history, physical exam and plan: Yes Notes (Text): 11/02/17 13:25 Attending note; Patient seen and examined with resident. Patient is 86-year-old female with PMH of stroke, Afib on cardizem and warfarin, sleep apnea on CPAP is admitted with nausea and vomiting x 1 day. Denies any fevers, chills. Currently denies any nausea, vomiting. CT abdomen showed inguinal hernia and diverticulosis. clinical examination is normal. Tolerating regular diet. No nausea, vomiting. No diarrhea. A. fib; rate controlled. Patient walks with a cane. Sleep apnea using CPAP at home. Patient is clinically stable. Patient wanted to go home and follow-up with PMD. Upon discharge the patient will follow-up with PMD .
== END 2017-11-02 12:33 | disposition home or self-care (01) ==
LOC: ED 08:55 → ERH 12:46 → 3RSO 14:09
PROVIDERS: ADMIT Internal Medicine; ATTEND Internal Medicine
DX: I48.91 Unspecified atrial fibrillation (principal); K21.9 Gastro-esophageal reflux disease without esophagitis; I10 Essential (primary) hypertension; K40.20 Bilateral inguinal hernia, without obstruction or gangrene, not specified as recurrent; R11.2 Nausea with vomiting, unspecified; G47.33 Obstructive sleep apnea (adult) (pediatric); J32.0 Chronic maxillary sinusitis; K57.30 Diverticulosis of large intestine without perforation or abscess without bleeding; E78.00 Pure hypercholesterolemia, unspecified; Z87.891 Personal history of nicotine dependence; Z79.01 Long term (current) use of anticoagulants; Z86.73 Personal history of transient ischemic attack (TIA), and cerebral infarction without residual deficits
CPT/HCPCS: 36415; 70450; 71045; 74177; 80053; 81001; 82150; 82550; 83615; 83690; 83880; 84484; 85025; 85610; 85730; 87804; 93005; 94660; 96361; 96374; 96375; 99285; G0378; J2405; J7040; Q9967

== ENCOUNTER 2018-02-25 11:04 | Inpatient (IN) | payer MEDICARE ==
[2018-02-25 11:24] VITALS: BMI 29.0
[2018-02-25] MEDS ORDERED: TraMADol/Apap 37.5/325 mg Tab PO STA (12:12)
--- NOTE | 2018-02-25 12:29 | ED PDOC ---
Arrival/HPI - General Chief Complaint: Lower Extremity Problem/Injury Time Seen by Provider: 02/25/18 11:33 Historian: Patient, Family - History of Present Illness Narrative History of Present Illness (Text): 02/25/18 12:24 Patient is a 87 year old female whose past medical history includes CVAx2, who presents to the Emergency department as insturcted by her PMD for right knee pain radiating to her right lower extremity. Patient reports having arthritis and that her right knee pain has been occurring for the past few weeks. Today patient called her PMD about her pain and was instructed to come to the Emergency department. She mentions that she can stand but experiences pain when walking. Her daughter mentions that the patient had physical therapy, which stopped approximately 1 month ago. She takes Tylenol for her pain with mild alleviation. Patient denies any fever, chills, chest pain, shortness of breath, nausea, vomiting, diarrhea, urinary symptoms, headache, dizziness, or any other complaints. Of note patient takes Warfarin and has her INR checked every week. PMD: Time/Duration: > week Symptom Onset: Gradual Symptom Course: Unchanged Context: Home Past Medical History - Provider Review Nursing Documentation Reviewed: Yes - Infectious Disease Hx of Infectious Diseases: None - Reproductive Menopause: Yes - Cardiac Hx Cardiac Disorders: Yes Hx Atrial Fibrillation: Yes Hx Hypertension: Yes - Pulmonary Hx Respiratory Disorders: No - Neurological HX Cerebrovascular Accident: Yes (x2) - HEENT Hx Cataracts: Yes Other/Comment: [place]. bilateral hearing aid - Renal Hx Renal Disorder: No - Endocrine/Metabolic Hx Endocrine Disorders: No - Hematological/Oncological Hx Blood Transfusions: No Hx Blood Transfusion Reaction: No - Integumentary Hx Dermatological Disorder: No - Musculoskeletal/Rheumatological Hx Musculoskeletal Disorders: No - Gastrointestinal Hx Gastrointestinal Disorders: No - Genitourinary/Gynecological Hx Urinary Tract Infection: Yes - Psychiatric Hx Depression: No Hx Emotional Abuse: No Hx Physical Abuse: No Hx Substance Use: No - Surgical History Hx Cholecystectomy: Yes - Anesthesia Hx Anesthesia: Yes Hx Anesthesia Reactions: No Hx Malignant Hyperthermia: No - Suicidal Assessment Feels Threatened In Home Enviroment: No Family/Social History - Physician Review Nursing Documentation Reviewed: Yes Family/Social History: No Known Family HX Smoking Status: Former Smoker Hx Alcohol Use: No Hx Substance Use: No Allergies/Home Meds Allergies/Adverse Reactions: Allergies No Known Allergies Allergy (Verified 03/20/16 12:25) Home Medications: Home Meds Medication Instructions Recorded Confirmed Warfarin Sodium [Coumadin] 4 mg PO DAILY 09/13/15 02/25/18 [id number] [Cardizem] 30 mg PO QID 09/13/15 02/25/18 Losartan [Cozaar] 25 mg PO DAILY 03/20/16 02/25/18 Pantoprazole [Protonix EC Tab] 20 mg PO DAILY 11/01/17 02/25/18 Warfarin [Coumadin] 2 mg PO DAILY 02/25/18 02/25/18 Review of Systems - Physician Review All systems were reviewed & negative as marked: Yes - Review of Systems Constitutional: absent: Fevers, Night Sweats Respiratory: absent: SOB Cardiovascular: absent: Chest Pain Gastrointestinal: absent: Diarrhea, Nausea, Vomiting Musculoskeletal: Arthralgias (right knee pain radiating to lower extremity) Neurological: absent: Headache, Dizziness Physical Exam Vital Signs Reviewed: Yes Vital Signs Temp Pulse Resp BP Pulse Ox 02/25/18 16:46 69 18 125/64 98 02/25/18 15:00 75 18 128/68 97 02/25/18 13:47 79 18 131/71 97 02/25/18 11:23 98.0 F 89 18 134/78 96 Temperature: Afebrile Blood Pressure: Normal Pulse: Regular Respiratory Rate: Normal Appearance: Positive for: Well-Appearing Mental Status: Positive for: Alert and Oriented X 3 - Systems Exam Head: Present: Atraumatic, Normocephalic Pupils: Present: PERRL Extroacular Muscles: Present: EOMI Conjunctiva: Present: Normal Mouth: Present: Moist Mucous Membranes Neck: Present: Normal Range of Motion Respiratory/Chest: Present: Clear to Auscultation, Good Air Exchange. No: Respiratory Distress, Accessory Muscle Use Cardiovascular: Present: Regular Rate and Rhythm, Normal S1, S2. No: Murmurs Abdomen: No: Tenderness, Distention, Peritoneal Signs Back: Present: Normal Inspection Upper Extremity: Present: Normal Inspection. No: Cyanosis, Edema Lower Extremity: Present: CALF TENDERNESS (right calf tenderness), Neurovascularly Intact, Other ((-)Right knee effusion). No: Edema Neurological: Present: GCS=15, CN II-XII Intact, Speech Normal Skin: Present: Warm, Dry, Normal Color. No: Rashes Psychiatric: Present: Alert, Oriented x 3, Normal Insight, Normal Concentration Medical Decision Making ED Course and Treatment: 02/25/18 12:30 Impression: Patient is a 87 year old female who is experiencing right knee pain radiating to right lower extremity. Differential Diagnosis included but are not limited to: Arthritis Plan: --Ultracet --Right knee X-ray --Right lower extremity US -- Reassess and disposition Prior Visits: Notes and results from previous visits were reviewed. Progress Notes: 02/25/18 14:19 Right Knee X-Ray: Creator : Ruel Ruggiero MD IMPRESSION: Normal radiographs of the right knee. 02/25/18 Right Lower Extremity venous US: Creator : Adams Bowens MD IMPRESSION: 1. No sonographic evidence for deep venous thrombosis in the visualized segments of the right lower extremity. 02/25/18 15:16 Discussed case with physical therapist, who is willing to evaluate the patient' s right knee. 02/25/18 15:18 Discussed case with , who is aware of the patient and requests CMP for patient. CMP ordered. 02/25/18 15:37 Patient wants to be discharged. Discussed with patient and daughter that patient should be evaluated by physical therapist before discharge. Explained the risk of injury given patient's difficulty walking secondary to knee pain, if she is discharged now. Patient admits feeling dizzy on medication, and hasn' t eaten breakfast or lunch today. Offered the patient a meal but she declined because she isn't hungry. Made patient aware that I contacted for possible admission. 02/25/18 16:01 Discussed patient with physical therapist, who will evaluate the patient. 02/25/18 16:17 Physical therapist evaluated patient and recommends patient undergo continued physical therapy, and patient is clearly not safe to go home. 02/25/18 16:37 EKG shows atrial fibrillation at 84 BPM. Interpreted by me. - Lab Interpretations I have reviewed the lab results: Yes - RAD Interpretation Radiology Orders: 02/25/18 12:12 KNEE RIGHT 2 VIEWS (AP & LAT) [RAD] Stat DUPLEX LOWER EXTRM VEIN RIGHT [US] Stat 02/25/18 15:24 CXR [CHEST PORTABLE] [RAD] Stat Electrical Prospector: Radiologist - EKG Interpretation Interpreted by ED Physician: Yes Type: 12 lead EKG - Medication Orders Current Medication Orders: Diltiazem HCl (Cardizem) 30 mg PO QID [facility] Last Admin: 02/26/18 10:56 Dose: 30 mg MAR Pulse and Blood Pressure Document 02/26/18 10:56 DSZ (Rec: 02/26/18 10:[address] [id number] Pulse Pulse Rate (60-90) 78 Blood Pressure Blood Pressure (100/60-150/90) 138/95 Losartan Potassium (Cozaar) 25 mg PO DAILY [facility] Last Admin: 02/26/18 10:56 Dose: 25 mg MAR Pulse and Blood Pressure Document 02/26/18 10:56 DSZ (Rec: 02/26/18 10:[address] [id number] Pulse Pulse Rate (60-90) 78 Blood Pressure Blood Pressure (100/60-150/90) 138/75 Pantoprazole Sodium (Protonix Ec Tab) 20 mg PO DAILY [facility] Last Admin: 02/26/18 10:56 Dose: 20 mg Tramadol HCl (Ultram) 25 mg PO TID PRN PRN Reason: Pain, moderate (4-7) Last Admin: 02/26/18 10:57 Dose: 25 mg MAR Pain Assessment Document 02/26/18 10:57 DSZ (Rec: 02/26/18 10:[address] [id number] Pain Reassessment Is this a pain reassessment? No Sleep Is patient sleeping during reassessment? No Presence of Pain Presence of Pain Yes Pain Scale Used Pain Scale Used Numeric Location Left, Right or Bilateral Right Pain Location Body Site Knee Description Description Intermittent Intensity of Pain at present 7 Acceptable Level of Pain 2 Pain Behavior Withdrawal from Touch Rubbing Site Aggravating Factors Changing Position Alleviating Factors/Management Medication Techniques Alleviating Factors Medication Warfarin Sodium (Coumadin) 3 mg PO 1800 [facility] PRN Reason: Protocol Discontinued Medications Diltiazem HCl (Cardizem) 30 mg PO QID [facility] Diltiazem HCl (Cardizem) 30 mg PO ONCE ONE Stop: 02/25/18 21:46 Last Admin: 02/25/18 22:02 Dose: 30 mg MAR Pulse and Blood Pressure Document 02/25/18 22:02 PCO (Rec: 02/25/18 22:[address] [id number]) Pulse Pulse Rate (60-90) 68 Blood Pressure Blood Pressure (100/60-150/90) 137/89 Pneumococcal Polyvalent Vaccine (Pneumovax 23 Vaccine) 0.5 ml IM .ONCE ONE Stop: 02/25/18 23:18 Tramadol HCl (Ultram) 50 mg PO TID PRN PRN Reason: Pain, moderate (4-7) Tramadol/Acetaminophen (Ultracet 37.5/325 Mg) 2 tab PO STAT STA Stop: 02/25/18 12:13 Last Admin: 02/25/18 12:33 Dose: 2 tab MAR Pain Assessment Document 02/25/18 12:33 OCS (Rec: 02/25/18 12:37 OCS [id number] Pain Reassessment Is this a pain reassessment? No Sleep Is patient sleeping during reassessment? No Presence of Pain Presence of Pain Yes Pain Scale Used Pain Scale Used Numeric Location Left, Right or Bilateral Right Pain Location Body Site Knee Description Description Constant Intensity of Pain at present 7 Aggravating Factors ADL's Warfarin Sodium (Coumadin) 4 mg PO 1800 BALTAZAR PRN Reason: Protocol - Scribe Statement The provider has reviewed the documentation as recorded by the Scribe Amari Morelos Provider Scribe Attestation: All medical record entries made by the Scribe were at my direction and personally dictated by me. I have reviewed the chart and agree that the record accurately reflects my personal performance of the history, physical exam, medical decision making, and the department course for this patient. I have also personally directed, reviewed, and agree with the discharge instructions and disposition. Disposition/Present on Arrival - Present on Arrival Any Indicators Present on Arrival: No History of DVT/PE: No History of Uncontrolled Diabetes: No Urinary Catheter: No History of Decub. Ulcer: No History Surgical Site Infection Following: None - Disposition Have Diagnosis and Disposition been Completed?: Yes Diagnosis: Intractable pain, Inability to bear weight, Arthritis, Atrial fibrillation, History of atrial fibrillation Disposition: HOSPITALIZED Disposition Time: 21:00 Patient Plan: Admission Condition: FAIR
--- NOTE | 2018-02-25 13:35 | RAD ---
PROCEDURE: Right Knee Radiographs. HISTORY: Knee and Calf Pain Right Leg COMPARISON: 09/12/2015 FINDINGS: BONES: Normal. No fracture. JOINTS: Normal. No osteoarthritis. JOINT EFFUSION: None. OTHER FINDINGS: Meniscal calcifications IMPRESSION: Normal radiographs of the right knee.
--- NOTE | 2018-02-25 16:13 | RAD ---
HISTORY: Admission COMPARISON: 11/01/2017 FINDINGS: LUNGS: No active pulmonary disease. PLEURA: No significant pleural effusion identified, no pneumothorax apparent. CARDIOVASCULAR: Mild cardiomegaly OSSEOUS STRUCTURES: No significant abnormalities. VISUALIZED UPPER ABDOMEN: Normal. OTHER FINDINGS: None. IMPRESSION: No active disease.
[2018-02-25 16:58] LABS: BASO # 0.04 K/mm3 (0.0-2.0); BASO % 0.4 % (0.0-3.0); EOS # 0.1 (0.0-0.7); GRAN # 5.76 (1.4-6.5); GRAN % 64.6 % (50.0-68.0); HEMOGLOBIN 15.6 g/dL (12.0-16.0); LYMPH # 2.4 (1.2-3.4); LYMPH % 26.6 % (22.0-35.0); MEAN CELL VOLUME 91.2 fl (80.0-105.0); MEAN CORPUSCULAR HEMOGLOBIN 30.6 pg (25.0-35.0); MEAN CORPUSCULAR HGB CONC 33.6 g/dl (31.0-37.0); MEAN PLATELET VOLUME 10.3 fl (7.0-11.0); MONO # 0.7 (0.1-0.6); MONO % 7.4 % (1.0-6.0); RBC 5.09 10^6/uL (3.5-6.1); RED CELL DISTRIBUTION WIDTH 14.6 % (11.5-14.5); WHITE BLOOD COUNT 8.9 10^3/ul (4.5-11.0)
[2018-02-25 17:09] LABS: ALB/GLOB RATIO 1.4 (1.1-1.8); ALBUMIN 4.1 g/dL (3.0-4.8); CALCIUM 9.1 mg/dL (8.4-10.5); GFR AFRICAN-AMERICAN > 60; GFR NON-AFRICAN AMERICAN > 60
[2018-02-25 17:10] LABS: INR 3.33 (0.93-1.08); PROTHROMBIN TIME 38.9 SECONDS (9.4-12.5)
[2018-02-25 17:18] LABS: ALT/SGPT 70 U/L (7-56); AST/SGOT 114 U/L (14-36); BLOOD UREA NITROGEN 16 mg/dL (7-21)
--- NOTE | 2018-02-25 17:34 | US ---
PROCEDURE: Right lower extremity venous US HISTORY: Leg pain and swelling. Evaluate for DVT. PHYSICIAN(S): Adams Mills M.D. TECHNIQUE: Duplex sonography and color-flow Doppler with graded compression were used to evaluate the deep venous system of the right lower extremity. FINDINGS: The visualized deep venous system of the right lower extremity is sonographically normal and compressible. Normal waveforms and augmentation are seen. There is no sonographic evidence for deep venous thrombosis in the visualized segments of the right lower extremity. IMPRESSION: 1. No sonographic evidence for deep venous thrombosis in the visualized segments of the right lower extremity.
--- NOTE | 2018-02-25 18:15 | CP.PCM.HP ---
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 Patient states she was undergoing physical therapy which stopped 2 months ago. Patient stopped physical therapy due to insurance issues. Once she stopped, she began developing leg pain. Patient admits to not being very active at home, although she lives by herself. Patient has taken tylenol for leg pain in the past, which gave her minimal relief. Pain is localized to anterior and posterior right knee, with no radiation. Pain is made worse with movement and alleviated by rest. Denies chest pain, shortness of breath, nausea, vomiting, diarrhea, fever, chills. 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 Uses a cane for ambulation Allergy: none Meds: Reviewed, as per MAR. Present on Admission - Present on Admission Any Indicators Present on Admission: No Review of Systems - Review of Systems Review of Systems: 12 point ROS as per HPI, otherwise negative Past Patient History - Infectious Disease Hx of Infectious Diseases: None - Past Social History Smoking Status: Former Smoker - CARDIAC Hx Cardiac Disorders: Yes Hx Atrial Fibrillation: Yes Hx Hypertension: Yes - PULMONARY Hx Respiratory Disorders: No - NEUROLOGICAL HX Cerebrovascular Accident: Yes (x2) - HEENT Hx Cataracts: Yes Other/Comment: [place]. bilateral hearing aid - RENAL Hx Chronic Kidney Disease: No - ENDOCRINE/METABOLIC Hx Endocrine Disorders: No - HEMATOLOGICAL/ONCOLOGICAL Hx Blood Transfusions: No Hx Blood Transfusion Reaction: No - INTEGUMENTARY Hx Dermatological Problems: No - MUSCULOSKELETAL/RHEUMATOLOGICAL Hx Musculoskeletal Disorders: No - GASTROINTESTINAL Hx Gastrointestinal Disorders: No - GENITOURINARY/GYNECOLOGICAL Hx Urinary Tract Infection: Yes - PSYCHIATRIC Hx Depression: No Hx Emotional Abuse: No Hx Physical Abuse: No Hx Substance Use: No - SURGICAL HISTORY Hx Cholecystectomy: Yes - ANESTHESIA Hx Anesthesia: Yes Hx Anesthesia Reactions: No Hx Malignant Hyperthermia: No Meds Allergies/Adverse Reactions: Allergies Allergy/AdvReac Type Severity Reaction Status Date / Time No Known Allergies Allergy Verified 03/20/16 12:25 Physical Exam - Constitutional Appears: Non-toxic, No Acute Distress - Head Exam Head Exam: ATRAUMATIC, NORMAL INSPECTION, NORMOCEPHALIC - Eye Exam Eye Exam: EOMI, Normal appearance - ENT Exam ENT Exam: Mucous Membranes Moist, Normal Exam - Respiratory Exam Respiratory Exam: Clear to Auscultation Bilateral, NORMAL BREATHING PATTERN - Cardiovascular Exam Cardiovascular Exam: +S1, +S2 - GI/Abdominal Exam GI & Abdominal Exam: Normal Bowel Sounds, Soft. absent: Tenderness - Extremities Exam Extremities exam: Negative for: pedal edema Additional comments: No pain on palpation of the knee - Neurological Exam Neurological exam: Alert, CN II-XII Intact, Oriented x3 - Psychiatric Exam Psychiatric exam: Normal Affect, Normal Mood - Skin Skin Exam: Intact, Normal Color, Warm Results - Vital Signs Recent Vital Signs: Last Vital Signs Temp 98.0 F 02/25/18 17:22 Pulse 69 02/25/18 17:22 Resp 18 02/25/18 17:22 BP 125/64 02/25/18 17:22 Pulse Ox 98 02/25/18 17:22 - Labs Result Diagrams: 02/25/18 16:38 02/25/18 16:38 Labs: Laboratory Results - last 24 hr 02/25/18 02/25/18 02/25/18 16:38 16:38 16:38 WBC 8.9 D RBC 5.09 Hgb 15.6 Hct 46.4 MCV 91.2 MCH 30.6 MCHC 33.6 RDW 14.6 H Plt Count 177 MPV 10.3 Gran % 64.6 Lymph % (Auto) 26.6 Owen % (Auto) 7.4 H Eos % (Auto) 1.0 L Baso % (Auto) 0.4 Gran # 5.76 Lymph # (Auto) 2.4 Owen # (Auto) 0.7 H Eos # (Auto) 0.1 Baso # (Auto) 0.04 PT 38.9 H INR 3.33 H Sodium 145 Potassium 4.2 Chloride 109 H Carbon Dioxide 23 Anion Gap 16 BUN 16 Creatinine 0.6 L Est GFR ( Amer) > 60 Est GFR (Non-Af Amer) > 60 Random Glucose 105 Calcium 9.1 Total Bilirubin 1.6 H AST 114 H D ALT 70 H Alkaline Phosphatase 100 Total Protein 7.0 Albumin 4.1 Globulin 2.9 Albumin/Globulin Ratio 1.4 Assessment & Plan - Assessment and Plan (Free Text) Plan: 87 year old female with past medical history of 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 Patient was seen by PT in the ED and they recommend continuing physical therapy at this time. 1. Right leg pain Right knee X-ray negative Right leg doppler ultrasound negative Right hip x-ray ordered Tramadol prn for pain PT 2. Elevated liver enzymes Hepatitis panel ordered Recheck in AM 3. Elevated INR Hold Coumadin Recheck INR in AM 4. A-fib Continue cardizem Hold coumadin 5. HTN Continue Cozaar 6. YANIV Continue CPAP 7. HLD Hold lipitor Recheck LFTs in AM 8. Prophylaxis Protonix Holding coumadin due to elevated INR Brisyeda, PGY-2 <Adela Cazares A - Last Filed: 02/26/18 08:13> Results - Vital Signs Recent Vital Signs: Last Vital Signs Temp 98 F 02/26/18 06:00 Pulse 78 02/26/18 06:00 Resp 18 02/26/18 06:00 BP 138/95 H 02/26/18 06:00 Pulse Ox 98 02/26/18 06:00 - Labs Result Diagrams: 02/26/18 06:45 02/26/18 06:45 Labs: Laboratory Results - last 24 hr 02/25/18 02/25/18 02/25/18 16:38 16:38 16:38 WBC 8.9 D RBC 5.09 Hgb 15.6 Hct 46.4 MCV 91.2 MCH 30.6 MCHC 33.6 RDW 14.6 H Plt Count 177 MPV 10.3 Gran % 64.6 Lymph % (Auto) 26.6 Owen % (Auto) 7.4 H Eos % (Auto) 1.0 L Baso % (Auto) 0.4 Gran # 5.76 Lymph # (Auto) 2.4 Owen # (Auto) 0.7 H Eos # (Auto) 0.1 Baso # (Auto) 0.04 ESR 5 PT 38.9 H INR 3.33 H Sodium 145 Potassium 4.2 Chloride 109 H Carbon Dioxide 23 Anion Gap 16 BUN 16 Creatinine 0.6 L Est GFR ( Amer) > 60 Est GFR (Non-Af Amer) > 60 Random Glucose 105 Calcium 9.1 Total Bilirubin 1.6 H AST 114 H D ALT 70 H Alkaline Phosphatase 100 Total Protein 7.0 Albumin 4.1 Globulin 2.9 Albumin/Globulin Ratio 1.4 02/26/18 02/26/18 02/26/18 06:45 06:45 06:45 WBC 6.5 D RBC 4.98 Hgb 15.1 Hct 45.4 MCV 91.2 MCH 30.3 MCHC 33.3 RDW 14.5 Plt Count 180 MPV 10.3 Gran % Lymph % (Auto) Owen % (Auto) Eos % (Auto) Baso % (Auto) Gran # Lymph # (Auto) Owen # (Auto) Eos # (Auto) Baso # (Auto) ESR PT 33.2 H INR 2.83 H Sodium 144 Potassium 4.0 Chloride 105 Carbon Dioxide 27 Anion Gap 15 BUN 14 Creatinine 0.7 Est GFR ( Amer) > 60 Est GFR (Non-Af Amer) > 60 Random Glucose 95 Calcium 8.9 Total Bilirubin 1.1 AST 82 H D ALT 98 H Alkaline Phosphatase 102 Total Protein 6.6 Albumin 4.0 Globulin 2.5 Albumin/Globulin Ratio 1.6 Attending/Attestation - Attestation I have personally seen and examined this patient.: Yes I have fully participated in the care of the patient.: Yes I have reviewed all pertinent clinical information: Yes Notes (Text): 02/25/18 87 year old female with past medical history of CVA, afib on coumadin, hypertension and dyslipidemia who presents with complaint of progressive right leg/knee pain and weakness. Xray of the right knee is negative. LE doppler is also negative. Hip xray is ordered. Review of prior imaging reveals degenerative disc spine disease. PT evaluation was requested; will follow up with recommendations if patient needs additional home/outpatient services vs rehab. LFTs are elevated. Patient denies any abdominal pain. Recent imaging shows fatty liver. Hepatitis panel is ordered. Hold statin for now and monitor LFTs. Lipid panel ordered for AM. INR is supratherapeutic today so coumadin will be held tonight with repeat INR in the morning. Adela Cazares MD Hospitalist.
[2018-02-25] MEDS ORDERED: Pneumococcal 23-Valent Vaccine IM ONE (23:17)
[2018-02-26 07:28] LABS: HEMOGLOBIN 15.1 g/dL (12.0-16.0); MEAN CELL VOLUME 91.2 fl (80.0-105.0); MEAN CORPUSCULAR HEMOGLOBIN 30.3 pg (25.0-35.0); MEAN CORPUSCULAR HGB CONC 33.3 g/dl (31.0-37.0); MEAN PLATELET VOLUME 10.3 fl (7.0-11.0); RBC 4.98 10^6/uL (3.5-6.1); RED CELL DISTRIBUTION WIDTH 14.5 % (11.5-14.5); WHITE BLOOD COUNT 6.5 10^3/ul (4.5-11.0)
[2018-02-26 07:29] LABS: INR 2.83 (0.93-1.08); PROTHROMBIN TIME 33.2 SECONDS (9.4-12.5)
[2018-02-26 07:47] LABS: ALB/GLOB RATIO 1.6 (1.1-1.8); ALT/SGPT 98 U/L (7-56); AST/SGOT 82 U/L (14-36); BLOOD UREA NITROGEN 14 mg/dL (7-21); CALCIUM 8.9 mg/dL (8.4-10.5); GFR AFRICAN-AMERICAN > 60; GFR NON-AFRICAN AMERICAN > 60
--- NOTE | 2018-02-26 08:49 | CARD ---
APPROVED REPORT EKG Measurement Heart [id number] <Conclusion> Atrial fibrillation Poor RR progression Abnormal ECG
[2018-02-26 09:52] LABS: HDL CHOLESTEROL 49 mg/dL (29-60)
[2018-02-26 10:02] LABS: LDL CHOLESTEROL 36 mg/dL (0-129)
[2018-02-26] MEDS: Pantoprazole 20 mg EC Tab PO SCH (10:56)
--- NOTE | 2018-02-26 11:23 | RAD ---
PROCEDURE: Right Hip and pelvis Radiographs. HISTORY: Right leg pain COMPARISON: None. FINDINGS: BONES: Normal. No fracture. JOINTS: Normal. SOFT TISSUES: Normal. OTHER FINDINGS: None. IMPRESSION: Negative study
[2018-02-26 12:27] LABS: HEPATITIS B SURFACE AG Negative (NEGATIVE)
[2018-02-26 12:33] LABS: HEPATITIS A IGM NEGATIVE (NEGATIVE); HEPATITIS B CORE AB NEGATIVE (NEGATIVE)
[2018-02-26 12:44] LABS: HEPATITIS C ANTIBODY NEGATIVE (NEGATIVE)
--- NOTE | 2018-02-26 13:53 | CP.PCM.PN ---
<Lawrence Vaughn - Last Filed: 02/26/18 13:53> Subjective - Date & Time of Evaluation Date of Evaluation: 02/26/18 Time of Evaluation: 07:45 - Subjective Subjective: Lawrence Vaughn DO, PGY-1: Hospitalist Service Patient seen and examined at bedside. Patient reports pain in the posterior aspect of the knee that radiates down to the mid calf with flexion or extension of the knee. Patient reports nausea with Tramadol. Case was discussed with both daughters, Missy and Daija on the phone. No adverse events noted overnight. Objective - Vital Signs/Intake and Output Vital Signs (last 24 hours): Temp Pulse Resp BP Pulse Ox 98 F 78 18 138/95 H 98 02/26/18 06:00 02/26/18 10:56 02/26/18 06:00 02/26/18 10:56 02/26/18 06:00 Intake and Output: 02/26/18 02/26/18 06:59 18:59 Intake Total 480 Balance 480 - Medications Medications: Current Medications Diltiazem HCl (Cardizem) 30 mg PO QID [facility] Last Admin: 02/26/18 10:56 Dose: 30 mg Losartan Potassium (Cozaar) 25 mg PO DAILY [facility] Last Admin: 02/26/18 10:56 Dose: 25 mg Pantoprazole Sodium (Protonix Ec Tab) 20 mg PO DAILY [facility] Last Admin: 02/26/18 10:56 Dose: 20 mg Tramadol HCl (Ultram) 25 mg PO TID PRN PRN Reason: Pain, moderate (4-7) Last Admin: 02/26/18 10:57 Dose: 25 mg Warfarin Sodium (Coumadin) 4 mg PO 1800 [facility] PRN Reason: Protocol - Labs Labs: 02/26/18 06:45 02/26/18 06:45 PT 33.2 SECONDS (9.4-12.5) H 02/26/18 06:45 INR 2.83 (0.93-1.08) H 02/26/18 06:45 - Constitutional Appears: Well, Non-toxic - Head Exam Head Exam: ATRAUMATIC, NORMOCEPHALIC - Eye Exam Eye Exam: EOMI, Normal appearance - ENT Exam ENT Exam: Mucous Membranes Moist - Neck Exam Neck Exam: Normal Inspection - Respiratory Exam Respiratory Exam: Clear to Ausculation Bilateral, NORMAL BREATHING PATTERN. absent: Accessory Muscle Use - Cardiovascular Exam Cardiovascular Exam: +S1, +S2. absent: Murmur - GI/Abdominal Exam GI & Abdominal Exam: Soft, Normal Bowel Sounds - Extremities Exam Extremities Exam: Joint Swelling (right knee ) Additional comments: varicose vein, cyst palpated in right popliteal area - Neurological Exam Neurological Exam: Alert, Awake, Oriented x3 Neuro motor strength exam: Left Upper Extremity: 5, Right Upper Extremity: 5, Left Lower Extremity: 5, Right Lower Extremity: 5 - Psychiatric Exam Psychiatric exam: Normal Affect, Normal Mood - Skin Skin Exam: Dry, Intact, Normal Color, Warm Assessment and Plan - Assessment and Plan (Free Text) Assessment: 87 year old female with past medical history of 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 Patient was seen by PT in the ED and they recommend continuing physical therapy at this time. 1. Right leg pain Right knee X-ray negative for fracture, showed meniscal calcifications Right leg doppler ultrasound negative Right hip x-ray negative Tramadol prn for pain Physical therapy recommends TCU 2. Elevated liver enzymes - Hepatitis panel negative - Statin held 3. Elevated INR - Resolved, will continue to adjust Coumadin dosage based on daily INRs 4. A-fib Continue cardizem 5. HTN Continue Cozaar 6. YANIV Continue CPAP 7. HLD Hold lipitor - TGs 129, Cholesterol 110,LDL 36, HDL 49 8. Prophylaxis Protonix 40 Case reviewed and discussed with attending physician, Dr. Cazares <Adela Cazares - Last Filed: 02/26/18 16:59> Objective - Vital Signs/Intake and Output Vital Signs (last 24 hours): Temp Pulse Resp BP Pulse Ox 98.1 F 77 20 122/78 95 02/26/18 14:00 02/26/18 14:00 02/26/18 14:00 02/26/18 14:00 02/26/18 14:00 Intake and Output: 02/26/18 02/26/18 06:59 18:59 Intake Total 480 480 Balance 480 480 - Medications Medications: Current Medications Diltiazem HCl (Cardizem) 30 mg PO QID [facility] Last Admin: 02/26/18 10:56 Dose: 30 mg Losartan Potassium (Cozaar) 25 mg PO DAILY [facility] Last Admin: 02/26/18 10:56 Dose: 25 mg Pantoprazole Sodium (Protonix Ec Tab) 20 mg PO DAILY [facility] Last Admin: 02/26/18 10:56 Dose: 20 mg Tramadol HCl (Ultram) 25 mg PO TID PRN PRN Reason: Pain, moderate (4-7) Last Admin: 02/26/18 10:57 Dose: 25 mg Warfarin Sodium (Coumadin) 3 mg PO 1800 [facility] PRN Reason: Protocol - Labs Labs: 02/26/18 06:45 02/26/18 06:45 PT 33.2 SECONDS (9.4-12.5) H 02/26/18 06:45 INR 2.83 (0.93-1.08) H 02/26/18 06:45 Attending/Attestation - Attestation I have personally seen and examined this patient.: Yes I have fully participated in the care of the patient.: Yes I have reviewed all pertinent clinical information, including history, physical exam and plan: Yes Notes (Text): 02/26/18 16:51 87 year old female with past medical history of CVA, afib on coumadin, hypertension and dyslipidemia who presents with complaint of progressive right leg/knee pain and weakness. Xray of the right knee and hip xray were negative. LE doppler was also negative. On examination she has varicose veins on right LE. Review of prior imaging reveals degenerative disc spine disease. PT evaluation was appreciated who recommended TCU. Family and patient are agreeable. Discussed with case supervisor. LFTs were elevated but improving. Patient denies any abdominal pain. Recent imaging shows fatty liver. Hepatitis panel is negative. Statin is on hold for now while monitoring LFTs. Lipid panel was reviewed and LDL was 36. INR has come down and coumadin is resumed for tonight. Adela Cazares MD Hospitalist.
[2018-02-27 07:41] LABS: HEMOGLOBIN 15.2 g/dL (12.0-16.0); MEAN CELL VOLUME 90.8 fl (80.0-105.0); MEAN CORPUSCULAR HEMOGLOBIN 30.5 pg (25.0-35.0); MEAN CORPUSCULAR HGB CONC 33.6 g/dl (31.0-37.0); MEAN PLATELET VOLUME 10.5 fl (7.0-11.0); RBC 4.98 10^6/uL (3.5-6.1); RED CELL DISTRIBUTION WIDTH 14.5 % (11.5-14.5); WHITE BLOOD COUNT 9.9 10^3/ul (4.5-11.0)
[2018-02-27 07:46] LABS: INR 2.54 (0.93-1.08); PROTHROMBIN TIME 29.8 SECONDS (9.4-12.5)
[2018-02-27 07:57] LABS: ALB/GLOB RATIO 1.5 (1.1-1.8); ALBUMIN 3.9 g/dL (3.0-4.8); ALT/SGPT 69 U/L (7-56); AST/SGOT 39 U/L (14-36); BLOOD UREA NITROGEN 18 mg/dL (7-21); CALCIUM 8.9 mg/dL (8.4-10.5); GFR AFRICAN-AMERICAN > 60; GFR NON-AFRICAN AMERICAN > 60
[2018-02-27] MEDS: Pantoprazole 20 mg EC Tab PO SCH (09:50)
[2018-02-27] MEDS ORDERED: TRIAMCINOLONE ACETON IM ONE (11:20)
[2018-02-27] MEDS ORDERED: Bupivacaine 0.25% Inj(30mL) IJ ONE (11:20)
[2018-02-27] MEDS ORDERED: Enoxaparin 40 mg Syringe SC SCH (14:30)
--- NOTE | 2018-02-27 15:23 | CP.PCM.CON ---
History of Present Illness - History of Present Illness History of Present Illness: Consultation for Dr. Garrison 87 F complaining of right knee pain for the last 6 weeks. Patient denies any history of injury or trauma. According to the daughter, she states her mother was doing a lot of walking and cleaning and started to develop right knee pain. Patient denies any pain prior. She denies any back pain, groin pain, numbness or tingling. She states it is difficult to bear full weight on the right lower extremity. She usually ambulates with a cane when she is at home. She was taking Tylenol, which did not give her any relief. She cannot take NSAIDS as she if on Warfarin due to history of CVAs. Review of Systems - Review of Systems All systems: reviewed and no additional remarkable complaints except - Musculoskeletal Additional comments: Right knee pain and swelling Past Patient History - Infectious Disease Hx of Infectious Diseases: None - Past Social History Smoking Status: Former Smoker - CARDIAC Hx Cardiac Disorders: Yes Hx Atrial Fibrillation: Yes Hx Hypertension: Yes - PULMONARY Hx Respiratory Disorders: No - NEUROLOGICAL HX Cerebrovascular Accident: Yes (x2) - HEENT Hx Cataracts: Yes Other/Comment: [place]. bilateral hearing aid - RENAL Hx Chronic Kidney Disease: No - ENDOCRINE/METABOLIC Hx Endocrine Disorders: No - HEMATOLOGICAL/ONCOLOGICAL Hx Blood Transfusions: No Hx Blood Transfusion Reaction: No - INTEGUMENTARY Hx Dermatological Problems: No - MUSCULOSKELETAL/RHEUMATOLOGICAL Hx Musculoskeletal Disorders: No - GASTROINTESTINAL Hx Gastrointestinal Disorders: No - GENITOURINARY/GYNECOLOGICAL Hx Urinary Tract Infection: Yes - PSYCHIATRIC Hx Depression: No Hx Emotional Abuse: No Hx Physical Abuse: No Hx Substance Use: No - SURGICAL HISTORY Hx Cholecystectomy: Yes - ANESTHESIA Hx Anesthesia: Yes Hx Anesthesia Reactions: No Hx Malignant Hyperthermia: No Meds Allergies/Adverse Reactions: Allergies Allergy/AdvReac Type Severity Reaction Status Date / Time No Known Allergies Allergy Verified 03/20/16 12:25 - Medications Medications: Current Medications Diltiazem HCl (Cardizem) 30 mg PO QID [facility] Last Admin: 02/27/18 13:31 Dose: 30 mg Enoxaparin Sodium (Lovenox) 40 mg SC DAILY [facility] PRN Reason: Protocol Losartan Potassium (Cozaar) 25 mg PO DAILY [facility] Last Admin: 02/27/18 09:50 Dose: 25 mg Pantoprazole Sodium (Protonix Ec Tab) 20 mg PO DAILY [facility] Last Admin: 02/27/18 09:50 Dose: 20 mg Tramadol HCl (Ultram) 25 mg PO TID PRN PRN Reason: Pain, moderate (4-7) Last Admin: 02/27/18 13:32 Dose: 25 mg Warfarin Sodium (Coumadin) 3 mg PO 1800 [facility] PRN Reason: Protocol Last Admin: 02/26/18 18:11 Dose: 3 mg Physical Exam - Constitutional Appears: Well, No Acute Distress - Head Exam Head Exam: ATRAUMATIC, NORMAL INSPECTION, NORMOCEPHALIC - Neck Exam Neck exam: Positive for: Normal Inspection - Respiratory Exam Respiratory Exam: NORMAL BREATHING PATTERN - Cardiovascular Exam Cardiovascular Exam: RRR - Extremities Exam Additional comments: On examination, patient is alert and awake sitting up in the chair. Daughter is present with her. Evaluation of the right knee, shows the skin is intact. There are varicosites noted of the right lower extrmeity. There is a mild effusion. Medial joint line tenderness to palpation. 0 degrees of extension and 90 degrees of flexion. No pain with passive internal/external rotation of the hip. The thigh and calf are soft and nontender. NVI distally Results - Vital Signs Recent Vital Signs: Last Vital Signs Temp 98.3 F 02/27/18 07:49 Pulse 87 02/27/18 13:31 Resp 20 02/27/18 07:49 BP 135/97 H 02/27/18 13:31 Pulse Ox 97 02/27/18 07:49 - Labs Result Diagrams: 02/27/18 07:00 02/27/18 07:00 Labs: Laboratory Results - last 24 hr 02/27/18 02/27/18 02/27/18 07:00 07:00 07:00 WBC 9.9 D RBC 4.98 Hgb 15.2 Hct 45.2 MCV 90.8 MCH 30.5 MCHC 33.6 RDW 14.5 Plt Count 181 MPV 10.5 PT 29.8 H INR 2.54 H Sodium 144 Potassium 3.8 Chloride 106 Carbon Dioxide 26 Anion Gap 16 BUN 18 Creatinine 0.7 Est GFR ( Amer) > 60 Est GFR (Non-Af Amer) > 60 Random Glucose 109 Calcium 8.9 Total Bilirubin 1.2 AST 39 H D ALT 69 H Alkaline Phosphatase 100 Total Protein 6.6 Albumin 3.9 Globulin 2.7 Albumin/Globulin Ratio 1.5 Assessment & Plan (1) Osteoarthritis of right knee Assessment and Plan: X-rays were reviewed. X-rays of the right knee showing no fractures or dislocations. There is moderate medial joint space narrowing X-rays of right hip/pelvis show no fractures or dislocations. There are early degenerative changes noted of the left and right hip. At this time, I recommend a cortisone injection for relief. The risks,benefits and alternatives were discussed and patient verbalizes understanding and would like to proceed. The right knee was prepped sterilely and 2cc Marcaine and 1cc Kenalog 40 was administered. Patient tolerated the procedure well. I recommend physical therapy at this time, with WBAT of the right lower extremity. Discussed with the daughter, patient can follow up as outpatient at Dr. Garrison's office. Above discussed with Dr. Garrison, he agrees. Status: Acute - Date & Time Date: 02/27/18 Time: 15:19
--- NOTE | 2018-02-27 17:23 | CP.PCM.PN ---
<Lawrence Vaughn - Last Filed: 02/27/18 20:20> Subjective - Date & Time of Evaluation Date of Evaluation: 02/27/18 Time of Evaluation: 17:23 - Subjective Subjective: Lawrence Vaughn DO, PGY-1: Hospitalist Service Patient seen and examined at bedside. Patient reports right knee pain worsened and current analgesic regiment is not effective. Call was made to Dr. Garrison' s service to ensure he would be able to see the patient. Fortunately, he was able to see the patient and perform and intra-articular knee injection. Patient reported minimal ability to walk with Physical Therapy yesterday. Nurse reports no untoward events overnight. Objective - Vital Signs/Intake and Output Vital Signs (last 24 hours): Temp Pulse Resp BP Pulse Ox 98.3 F 93 H 20 137/94 H 95 02/27/18 14:00 02/27/18 14:00 02/27/18 14:00 02/27/18 14:00 02/27/18 14:00 Intake and Output: 02/27/18 02/27/18 06:59 18:59 Intake Total 480 Balance 480 - Medications Medications: Current Medications Diltiazem HCl (Cardizem) 30 mg PO QID [facility] Last Admin: 02/27/18 13:31 Dose: 30 mg Enoxaparin Sodium (Lovenox) 40 mg SC DAILY [facility] PRN Reason: Protocol Losartan Potassium (Cozaar) 25 mg PO DAILY [facility] Last Admin: 02/27/18 09:50 Dose: 25 mg Pantoprazole Sodium (Protonix Ec Tab) 20 mg PO DAILY [facility] Last Admin: 02/27/18 09:50 Dose: 20 mg Tramadol HCl (Ultram) 25 mg PO TID PRN PRN Reason: Pain, moderate (4-7) Last Admin: 02/27/18 13:32 Dose: 25 mg Warfarin Sodium (Coumadin) 3 mg PO 1800 [facility] PRN Reason: Protocol Last Admin: 02/26/18 18:11 Dose: 3 mg - Labs Labs: 02/27/18 07:00 02/27/18 07:00 PT 29.8 SECONDS (9.4-12.5) H 02/27/18 07:00 INR 2.54 (0.93-1.08) H 02/27/18 07:00 - Constitutional Appears: Well, Non-toxic - Head Exam Head Exam: ATRAUMATIC, NORMOCEPHALIC - Eye Exam Eye Exam: EOMI, Normal appearance - ENT Exam ENT Exam: Mucous Membranes Moist, Normal Oropharynx - Neck Exam Neck Exam: Normal Inspection - Respiratory Exam Respiratory Exam: Clear to Ausculation Bilateral, NORMAL BREATHING PATTERN. 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 Patient was seen by PT in the ED and they recommend continuing physical therapy at this time. 1. Right knee pain - Intraacticular injection with steroid injection Right knee X-ray negative for fracture, showed meniscal calcifications Right leg doppler ultrasound negative Right hip x-ray negative Tramadol 25 mg PO TID for pain Physical therapy recommends TCU 2. Elevated liver enzymes, likely secondary to Tylenol overuse - Hepatitis panel negative - Statin held 3. Anticoagulation for atrial fibrillation - Resolved, will continue to adjust Coumadin dosage based on daily INRs: today 2.54 4. A-fib - Diltiazem 30 mg QID 5. HTN - Losartan 25 mg PO daily 6. YANIV Continue CPAP 7. HLD Hold lipitor - TGs 129, Cholesterol 110, LDL 36, HDL 49 8) CVA - Will restart Statin once LFTs trend down 8. Prophylaxis - Patient is already on Warfarin - Protonix 40 Case reviewed and discussed with attending physician, Dr. Cazares <Adela Cazares - Last Filed: 02/28/18 07:38> Objective - Vital Signs/Intake and Output Vital Signs (last 24 hours): Temp Pulse Resp BP Pulse Ox 97.4 F L 88 20 138/90 96 02/28/18 06:00 02/28/18 06:00 02/28/18 06:00 02/28/18 06:00 02/28/18 06:00 Intake and Output: 02/28/18 02/28/18 06:59 18:59 Intake Total 360 Balance 360 - Medications Medications: Current Medications Diltiazem HCl (Cardizem) 30 mg PO QID [facility] Last Admin: 02/27/18 22:29 Dose: 30 mg Losartan Potassium (Cozaar) 25 mg PO DAILY [facility] Last Admin: 02/27/18 09:50 Dose: 25 mg Pantoprazole Sodium (Protonix Ec Tab) 20 mg PO DAILY [facility] Last Admin: 02/27/18 09:50 Dose: 20 mg Tramadol HCl (Ultram) 25 mg PO TID PRN PRN Reason: Pain, moderate (4-7) Last Admin: 02/27/18 13:32 Dose: 25 mg Warfarin Sodium (Coumadin) 3 mg PO 1800 [facility] PRN Reason: Protocol Last Admin: 02/27/18 17:43 Dose: 3 mg - Labs Labs: 02/28/18 06:30 02/27/18 07:00 PT 29.8 SECONDS (9.4-12.5) H 02/27/18 07:00 INR 2.54 (0.93-1.08) H 02/27/18 07:00 Attending/Attestation - Attestation I have personally seen and examined this patient.: Yes I have fully participated in the care of the patient.: Yes I have reviewed all pertinent clinical information, including history, physical exam and plan: Yes Notes (Text): 02/27/18 87 year old female with past medical history of CVA, afib on coumadin, hypertension and dyslipidemia who presents with complaint of progressive right leg/knee pain and weakness. Xray of the right knee and hip xray were negative. LE doppler was also negative. Review of prior imaging reveals degenerative disc spine disease. PT evaluation was appreciated who recommended TCU. Family and patient are agreeable. Orthopedics evaluation was appreciated and patient is s/p cortisone injection. LFTs were elevated but improving. Patient denies any abdominal pain. Recent imaging shows fatty liver. Hepatitis panel is negative. Statin is on hold for now while monitoring LFTs. Lipid panel was reviewed and LDL was 36. Will resume statin if LFTs continue to improve. Continue with coumadin as per INR. Adela Cazares MD Hospitalist.
[2018-02-28 02:42] VITALS: O2SAT 96
[2018-02-28 06:48] LABS: HEMOGLOBIN 16.3 g/dL (12.0-16.0); MEAN CELL VOLUME 90.3 fl (80.0-105.0); MEAN CORPUSCULAR HEMOGLOBIN 30.3 pg (25.0-35.0); MEAN CORPUSCULAR HGB CONC 33.5 g/dl (31.0-37.0); MEAN PLATELET VOLUME 10.2 fl (7.0-11.0); RBC 5.38 10^6/uL (3.5-6.1); RED CELL DISTRIBUTION WIDTH 14.3 % (11.5-14.5)
[2018-02-28 07:27] VITALS: BP 138/90; PULSE 88; RESP 20; TEMP 97.4
[2018-02-28 07:40] LABS: ALB/GLOB RATIO 1.6 (1.1-1.8); ALBUMIN 4.3 g/dL (3.0-4.8); ALT/SGPT 55 U/L (7-56); AST/SGOT 22 U/L (14-36); BLOOD UREA NITROGEN 25 mg/dL (7-21); CALCIUM 9.6 mg/dL (8.4-10.5); GFR AFRICAN-AMERICAN > 60; GFR NON-AFRICAN AMERICAN > 60
[2018-02-28 07:47] LABS: INR 2.63 (0.93-1.08); PROTHROMBIN TIME 30.8 SECONDS (9.4-12.5)
[2018-02-28] MEDS: Pantoprazole 20 mg EC Tab PO SCH (09:42)
--- NOTE | 2018-02-28 18:53 | CP.PCM.DIS ---
<Lawrence Vaughn - Last Filed: 03/02/18 20:56> Provider - Provider Date of Admission: 02/25/18 15:25 Attending physician: Adela Cazares MD Consults: [facility] Time Spent in preparation of Discharge (in minutes): 35 Hospital Course - Lab Results Lab Results: Most Recent Lab Values WBC 7.0 10^3/ul (4.5-11.0) D 02/28/18 06:30 RBC 5.38 10^6/uL (3.5-6.1) 02/28/18 06:30 Hgb 16.3 g/dL (12.0-16.0) H 02/28/18 06:30 Hct 48.6 % (36.0-48.0) H 02/28/18 06:30 MCV 90.3 fl (80.0-105.0) 02/28/18 06:30 MCH 30.3 pg (25.0-35.0) 02/28/18 06:30 MCHC 33.5 g/dl (31.0-37.0) 02/28/18 06:30 RDW 14.3 % (11.5-14.5) 02/28/18 06:30 Plt Count 169 10^3/uL (120.0-450.0) 02/28/18 06:30 MPV 10.2 fl (7.0-11.0) 02/28/18 06:30 Gran % 64.6 % (50.0-68.0) 02/25/18 16:38 Lymph % (Auto) 26.6 % (22.0-35.0) 02/25/18 16:38 [place] % (Auto) 7.4 % (1.0-6.0) H 02/25/18 16:38 Eos % (Auto) 1.0 % (1.5-5.0) L 02/25/18 16:38 Baso % (Auto) 0.4 % (0.0-3.0) 02/25/18 16:38 Gran # 5.76 (1.4-6.5) 02/25/18 16:38 Lymph # (Auto) 2.4 (1.2-3.4) 02/25/18 16:38 [place] # (Auto) 0.7 (0.1-0.6) H 02/25/18 16:38 Eos # (Auto) 0.1 (0.0-0.7) 02/25/18 16:38 Baso # (Auto) 0.04 K/mm3 (0.0-2.0) 02/25/18 16:38 ESR 5 mm/hr (0.0-20.0) 02/25/18 16:38 PT 30.8 SECONDS (9.4-12.5) H 02/28/18 06:30 INR 2.63 (0.93-1.08) H 02/28/18 06:30 Sodium 145 mmol/L (132-148) 02/28/18 07:00 Potassium 4.6 mmol/L (3.6-5.0) 02/28/18 07:00 Chloride 105 mmol/L (98-107) 02/28/18 07:00 Carbon Dioxide 26 mmol/L (21-33) 02/28/18 07:00 Anion Gap 20 (10-20) 02/28/18 07:00 BUN 25 mg/dL (7-21) H 02/28/18 07:00 Creatinine 0.7 mg/dl (0.7-1.2) 02/28/18 07:00 Est GFR ( Amer) > 60 02/28/18 07:00 Est GFR (Non-Af Amer) > 60 02/28/18 07:00 Random Glucose 148 mg/dL (70-110) H 02/28/18 07:00 Calcium 9.6 mg/dL (8.4-10.5) 02/28/18 07:00 Total Bilirubin 1.1 mg/dL (0.2-1.3) 02/28/18 07:00 AST 22 U/L (14-36) 02/28/18 07:00 ALT 55 U/L (7-56) 02/28/18 07:00 Alkaline Phosphatase 92 U/L (38-126) 02/28/18 07:00 Total Protein 6.9 g/dL (5.8-8.3) 02/28/18 07:00 Albumin 4.3 g/dL (3.0-4.8) 02/28/18 07:00 Globulin 2.6 gm/dL 06/23/18 07:00 Albumin/Globulin Ratio 1.6 (1.1-1.8) 02/28/18 07:00 Triglycerides 129 mg/dL (35-160) 02/26/18 09:00 Cholesterol 110 mg/dL (130-200) L 02/26/18 09:00 LDL Cholesterol Direct 36 mg/dL (0-129) 02/26/18 09:00 HDL Cholesterol 49 mg/dL (29-60) 02/26/18 09:00 Hepatitis A IgM Ab Negative (NEGATIVE) 02/26/18 06:45 Hep Bs Antigen Negative (NEGATIVE) 02/26/18 06:45 Hep B Core IgM Ab Negative (NEGATIVE) 02/26/18 06:45 Hepatitis C Antibody Negative (NEGATIVE) 02/26/18 06:45 - Hospital Course Hospital Course: 87 year old female with past medical 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 Patient states she was undergoing physical therapy which stopped 2 months ago. Patient stopped physical therapy due to insurance issues. Once she stopped, she began developing leg pain. Patient admits to not being very active at home, although she lives by herself. Patient has taken tylenol for leg pain in the past, which gave her minimal relief. Pain is localized to anterior and posterior right knee, with no radiation. Pain is made worse with movement and alleviated by rest. Denies chest pain, shortness of breath, nausea, vomiting, diarrhea, fever, chills. Xray of the right knee and hip xray were negative. LE doppler was also negative. Review of prior imaging reveals degenerative disc spine disease. PT evaluation was appreciated who recommended TCU. Family and patient are agreeable. Orthopedics evaluation was appreciated and patient is s/p cortisone injection.LFTs were elevated but improving. Patient denies any abdominal pain. Recent imaging shows fatty liver. Hepatitis panel is negative. Statin is on hold for now while monitoring LFTs. Lipid panel was reviewed and LDL was 36. Will resume statin if LFTs continue to improve. Continue with coumadin as per INR. Patient was discharged to the TCU for rehabilitation. Discharge Exam - Head Exam Head Exam: ATRAUMATIC, NORMOCEPHALIC - Eye Exam Eye Exam: EOMI, Normal appearance - ENT Exam ENT Exam: Mucous Membranes Moist, Normal Oropharynx - Neck Exam Neck exam: Normal Inspection - Respiratory Exam Respiratory Exam: Clear to PA & Lateral, NORMAL BREATHING PATTERN - Cardiovascular Exam Cardiovascular Exam: RRR, +S1, +S2 - GI/Abdominal Exam GI & Abdominal Exam: Normal Bowel Sounds - Neurological Exam Neurological exam: Alert, CN II-XII Intact, Oriented x3 - Psychiatric Exam Psychiatric exam: Normal Affect, Normal Mood - Skin Skin Exam: Dry, Intact, Normal Color, Warm Discharge Plan - Follow Up Plan Condition: FAIR Disposition: TRANSF TO SNF Instructions: Smoking: Not Just Harmful to Your Lungs and Heart, Hip Pain, Active Range of Motion Exercises, Back and Hips Additional Instructions: You have been discharged from [facility] Med[facility]Surg floor. You will be going to the Transional Care Unit. Your pmd will follow you there. <Adela Cazares - Last Filed: 03/04/18 07:50> Provider - Provider Date of Admission: 02/25/18 15:25 Attending physician: Adela Cazares MD Hospital Course - Lab Results Lab Results: Most Recent Lab Values WBC 7.0 10^3/ul (4.5-11.0) D 02/28/18 06:30 RBC 5.38 10^6/uL (3.5-6.1) 02/28/18 06:30 Hgb 16.3 g/dL (12.0-16.0) H 02/28/18 06:30 Hct 48.6 % (36.0-48.0) H 02/28/18 06:30 MCV 90.3 fl (80.0-105.0) 02/28/18 06:30 MCH 30.3 pg (25.0-35.0) 02/28/18 06:30 MCHC 33.5 g/dl (31.0-37.0) 02/28/18 06:30 RDW 14.3 % (11.5-14.5) 02/28/18 06:30 Plt Count 169 10^3/uL (120.0-450.0) 02/28/18 06:30 MPV 10.2 fl (7.0-11.0) 02/28/18 06:30 Gran % 64.6 % (50.0-68.0) 02/25/18 16:38 Lymph % (Auto) 26.6 % (22.0-35.0) 02/25/18 16:38 [place] % (Auto) 7.4 % (1.0-6.0) H 02/25/18 16:38 Eos % (Auto) 1.0 % (1.5-5.0) L 02/25/18 16:38 Baso % (Auto) 0.4 % (0.0-3.0) 02/25/18 16:38 Gran # 5.76 (1.4-6.5) 02/25/18 16:38 Lymph # (Auto) 2.4 (1.2-3.4) 02/25/18 16:38 [place] # (Auto) 0.7 (0.1-0.6) H 02/25/18 16:38 Eos # (Auto) 0.1 (0.0-0.7) 02/25/18 16:38 Baso # (Auto) 0.04 K/mm3 (0.0-2.0) 02/25/18 16:38 ESR 5 mm/hr (0.0-20.0) 02/25/18 16:38 PT 30.8 SECONDS (9.4-12.5) H 02/28/18 06:30 INR 2.63 (0.93-1.08) H 02/28/18 06:30 Sodium 145 mmol/L (132-148) 02/28/18 07:00 Potassium 4.6 mmol/L (3.6-5.0) 02/28/18 07:00 Chloride 105 mmol/L (98-107) 02/28/18 07:00 Carbon Dioxide 26 mmol/L (21-33) 02/28/18 07:00 Anion Gap 20 (10-20) 02/28/18 07:00 BUN 25 mg/dL (7-21) H 02/28/18 07:00 Creatinine 0.7 mg/dl (0.7-1.2) 02/28/18 07:00 Est GFR ( Amer) > 60 02/28/18 07:00 Est GFR (Non-Af Amer) > 60 02/28/18 07:00 Random Glucose 148 mg/dL (70-110) H 02/28/18 07:00 Calcium 9.6 mg/dL (8.4-10.5) 02/28/18 07:00 Total Bilirubin 1.1 mg/dL (0.2-1.3) 02/28/18 07:00 AST 22 U/L (14-36) 02/28/18 07:00 ALT 55 U/L (7-56) 02/28/18 07:00 Alkaline Phosphatase 92 U/L (38-126) 02/28/18 07:00 Total Protein 6.9 g/dL (5.8-8.3) 02/28/18 07:00 Albumin 4.3 g/dL (3.0-4.8) 02/28/18 07:00 Globulin 2.6 gm/dL 02/28/18 07:00 Albumin/Globulin Ratio 1.6 (1.1-1.8) 02/28/18 07:00 Triglycerides 129 mg/dL (35-160) 02/26/18 09:00 Cholesterol 110 mg/dL (130-200) L 02/26/18 09:00 LDL Cholesterol Direct 36 mg/dL (0-129) 02/26/18 09:00 HDL Cholesterol 49 mg/dL (29-60) 02/26/18 09:00 Hepatitis A IgM Ab Negative (NEGATIVE) 02/26/18 06:45 Hep Bs Antigen Negative (NEGATIVE) 02/26/18 06:45 Hep B Core IgM Ab Negative (NEGATIVE) 02/26/18 06:45 Hepatitis C Antibody Negative (NEGATIVE) 02/26/18 06:45 Attending/Attestation - Attestation I have personally seen and examined this patient.: Yes I have fully participated in the care of the patient.: Yes I have reviewed all pertinent clinical information, including history, physical exam and plan: Yes Notes (Text): 87 year old female with past medical history of CVA, afib on coumadin, hypertension and dyslipidemia who presents with complaint of progressive right leg/knee pain and weakness. Workup including xray of the right knee, hip xray and LE doppler were negative. She was seen by orthopedics and is s/p cortisone injection with improvement of symptoms. She was seen by PT who recommended TCU to which patient and family are agreeable. LFTs were elevated but improved. Can resume statin while monitoring LFTs. Continue with coumadin as per INR. Adela Cazares MD Hospitalist.
== END 2018-02-28 11:43 | DRG 554 ==
LOC: ED 11:04 → ERH 15:25 → 5RSO 17:32
PROVIDERS: ADMIT Internal Medicine; ATTEND Internal Medicine
PROC: 3E0U33Z Introduction of Anti-inflammatory into Joints, Percutaneous Approach (ICD-10-PCS; principal; 2018-02-27)
DX: M17.11 Unilateral primary osteoarthritis, right knee (principal); I48.91 Unspecified atrial fibrillation; K21.9 Gastro-esophageal reflux disease without esophagitis; G47.33 Obstructive sleep apnea (adult) (pediatric); I10 Essential (primary) hypertension; I83.91 Asymptomatic varicose veins of right lower extremity; R79.1 Abnormal coagulation profile; M51.9 Unspecified thoracic, thoracolumbar and lumbosacral intervertebral disc disorder; E78.5 Hyperlipidemia, unspecified; K76.0 Fatty (change of) liver, not elsewhere classified; Z87.440 Personal history of urinary (tract) infections; Z79.01 Long term (current) use of anticoagulants; Z86.73 Personal history of transient ischemic attack (TIA), and cerebral infarction without residual deficits; Z87.891 Personal history of nicotine dependence

== ENCOUNTER 2018-02-28 11:43 | Inpatient (IN) | payer OTHER ==
[2018-02-28 13:03] VITALS: BMI 29.1
[2018-02-28] MEDS ORDERED: Pneumococcal 23-Valent Vaccine IM ONE (13:50)
[2018-03-01] MEDS: Pantoprazole 20 mg EC Tab PO SCH (06:04)
[2018-03-01 08:05] LABS: INR 3.46 (0.93-1.08); PROTHROMBIN TIME 40.8 SECONDS (9.4-12.5)
--- NOTE | 2018-03-01 16:23 | CP.PCM.HP ---
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 Patient states she was undergoing physical therapy which stopped 2 months ago. Patient stopped physical therapy due to insurance issues. Once she stopped, she began developing leg pain. Patient admits to not being very active at home, although she lives by herself. Patient has taken tylenol for leg pain in the past, which gave her minimal relief. Pain is localized to anterior and posterior right knee, with no radiation. Pain is made worse with movement and alleviated by rest. Denies chest pain, shortness of breath, nausea, vomiting, diarrhea, fever, chills. Patient underwent X-rays of the right knee, pelvis, with orthopedic consulted who performed a steroid injection in the knee. Her acute pain resolved and she was discharged to the TCU for strengthening. 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 Uses a cane for ambulation Allergy: none Meds: Reviewed, as per MAR. Present on Admission - Present on Admission Any Indicators Present on Admission: No Review of Systems - Review of Systems All systems: reviewed and no additional remarkable complaints except (as per HPI ) Past Patient History - Infectious Disease Hx of Infectious Diseases: None - Past Social History Smoking Status: Former Smoker - CARDIAC Hx Hypertension: Yes - PULMONARY Hx Respiratory Disorders: No - NEUROLOGICAL HX Cerebrovascular Accident: Yes (x2) - HEENT Hx Cataracts: Yes Other/Comment: cachil dehe. bilateral hearing aid - RENAL Hx Chronic Kidney Disease: No - ENDOCRINE/METABOLIC Hx Endocrine Disorders: No - HEMATOLOGICAL/ONCOLOGICAL Hx Blood Transfusions: No Hx Blood Transfusion Reaction: No - INTEGUMENTARY Hx Dermatological Problems: No - MUSCULOSKELETAL/RHEUMATOLOGICAL Hx Arthritis: Yes - GASTROINTESTINAL Hx Gastrointestinal Disorders: Yes (FAIR APPETITE.SMALL FREQ FEEDING) - GENITOURINARY/GYNECOLOGICAL Hx Genitourinary Disorders: Yes (SOME URINARY FREQUENCY,SOME INCONTINENCY,USES POISE PADS.) Hx Reproductive Disorders: No - PSYCHIATRIC Hx Depression: No Hx Emotional Abuse: No Hx Physical Abuse: No Hx Substance Use: No - SURGICAL HISTORY Hx Cholecystectomy: Yes - ANESTHESIA Hx Anesthesia: Yes Hx Anesthesia Reactions: No Hx Malignant Hyperthermia: No Meds Allergies/Adverse Reactions: Allergies Allergy/AdvReac Type Severity Reaction Status Date / Time No Known Allergies Allergy Verified 02/28/18 12:05 Physical Exam - Constitutional Appears: Well, Non-toxic - Head Exam Head Exam: ATRAUMATIC, NORMAL INSPECTION, NORMOCEPHALIC - Eye Exam Eye Exam: EOMI, Normal appearance - ENT Exam ENT Exam: Mucous Membranes Moist - Neck Exam Neck exam: Positive for: Normal Inspection - Respiratory Exam Respiratory Exam: Clear to Auscultation Bilateral, NORMAL BREATHING PATTERN. absent: Accessory Muscle Use - Cardiovascular Exam Cardiovascular Exam: Irregular Rhythm, +S1, +S2 - GI/Abdominal Exam GI & Abdominal Exam: Normal Bowel Sounds, Soft - Extremities Exam Extremities exam: Positive for: normal inspection. 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 Patient was seen by PT in the ED and they recommend continuing physical therapy at this time. A) TCU for weakness and gait instability - Physical therapy 1. Right knee pain - Intraacticular injection with steroid injection Right knee X-ray negative for fracture, showed meniscal calcifications Right leg doppler ultrasound negative Right hip x-ray negative Tramadol 25 mg PO TID for pain Physical therapy recommends TCU 2. Elevated liver enzymes, likely secondary to Tylenol overuse - Hepatitis panel negative - Statin held 3. Anticoagulation for atrial fibrillation - Resolved, will continue to adjust Coumadin dosage based on daily INRs: today 3.16 and thus held Coumadin 4. A-fib - Diltiazem 30 mg QID 5. HTN - Losartan 25 mg PO daily 6. YANIV Continue CPAP 7. HLD Hold lipitor till LFTS completely normalize - TGs 129, Cholesterol 110, LDL 36, HDL 49 8) CVA - Will restart Statin once LFTs trend down 8. Prophylaxis - Patient is already on Warfarin - Protonix 40 Case reviewed and discussed with attending physician, Dr. Cazares - Date & Time Date: 03/01/18 Time: 08:00 <Adela Cazares - Last Filed: 03/04/18 07:53> Results - Vital Signs Recent Vital Signs: Last Vital Signs Temp 97.7 F 03/03/18 16:00 Pulse 71 03/04/18 06:07 Resp 18 03/03/18 16:00 BP 151/109 H 03/04/18 06:07 Pulse Ox 100 03/03/18 16:46 - Labs Result Diagrams: 03/02/18 07:53 03/02/18 07:53 Attending/Attestation - Attestation I have personally seen and examined this patient.: Yes I have fully participated in the care of the patient.: Yes I have reviewed all pertinent clinical information: Yes Notes (Text): 87 year old female with past medical history of CVA, afib on coumadin, hypertension and dyslipidemia who presented with complaint of progressive right leg/knee pain and weakness. Xray of the right knee and hip xray were negative. LE doppler was also negative. Review of prior imaging reveals degenerative disc spine disease. She was seen by orthopedics and is s/p cortisone injection with improvement of symptoms. LFTs were elevated but improved. Recent imaging shows fatty liver. Hepatitis panel was negative. Statin was on hold for now while monitoring LFTs. Consider resuming with close monitoring of LFTs as LFTs have improved. Continue with coumadin as per INR. Today's dose will be held due to supratherapeutic INR. Adela Cazares MD Hospitalist.
[2018-03-02] MEDS ORDERED: Morphine 2 mg/ml ISec IVP STA (02:51)
[2018-03-02 03:46] LABS: TROPONIN I < 0.01 ng/mL
[2018-03-02] MEDS: Pantoprazole 20 mg EC Tab PO SCH (05:55)
[2018-03-02 07:56] LABS: GRAN # 8.17 (1.4-6.5); GRAN % 84.5 % (50.0-68.0); HEMOGLOBIN 15.2 g/dL (12.0-16.0); LYMPH % 10.5 % (22.0-35.0); MEAN CELL VOLUME 90.2 fl (80.0-105.0); MEAN CORPUSCULAR HEMOGLOBIN 30.5 pg (25.0-35.0); MEAN CORPUSCULAR HGB CONC 33.9 g/dl (31.0-37.0); MEAN PLATELET VOLUME 10.3 fl (7.0-11.0); MONO # 0.5 (0.1-0.6); RBC 4.98 10^6/uL (3.5-6.1); RED CELL DISTRIBUTION WIDTH 14.4 % (11.5-14.5); WHITE BLOOD COUNT 9.7 10^3/ul (4.5-11.0)
[2018-03-02 08:14] LABS: INR 2.73 (0.93-1.08); PROTHROMBIN TIME 32.1 SECONDS (9.4-12.5)
[2018-03-02 08:21] LABS: ALB/GLOB RATIO 1.5 (1.1-1.8); ALT/SGPT 74 U/L (7-56); AST/SGOT 36 U/L (14-36); BLOOD UREA NITROGEN 28 mg/dL (7-21); CALCIUM 9.1 mg/dL (8.4-10.5); GFR AFRICAN-AMERICAN > 60; GFR NON-AFRICAN AMERICAN > 60
--- NOTE | 2018-03-02 22:46 | CARD ---
APPROVED REPORT EKG Measurement Heart [id number] <Conclusion> Atrial fibrillation Nonspecific ST and T wave abnormality, probably digitalis effect Abnormal ECG
[2018-03-03] MEDS: Pantoprazole 20 mg EC Tab PO SCH (05:35)
[2018-03-03 06:24] LABS: INR 2.46 (0.93-1.08); PROTHROMBIN TIME 28.8 SECONDS (9.4-12.5)
--- NOTE | 2018-03-03 15:48 | CP.PCM.PN ---
<Lawrence Vaughn - Last Filed: 03/03/18 17:32> Subjective - Date & Time of Evaluation Date of Evaluation: 03/03/18 Time of Evaluation: 07:00 - Subjective Subjective: Patient seen and examined at bedside. Patient's blood pressure was noted to be 160/100 overnight. Losartan was increased. Patient denies any chest pain, dyspnea, or shortness of breath. Patient is happy with PT. We discussed that she will need a prescription for a rolling walker upon discharge. Patient is enjoying PT. She likes her instructor/therapist Juan R. She is doing excellent without any pain. Objective - Vital Signs/Intake and Output Vital Signs (last 24 hours): Temp Pulse Resp BP Pulse Ox 97.8 F 74 16 141/81 96 03/02/18 16:00 03/03/18 15:00 03/02/18 16:00 03/03/18 15:00 03/02/18 16:00 - Medications Medications: Current Medications Diltiazem HCl (Cardizem) 30 mg PO QID [facility] PRN Reason: Protocol Last Admin: 03/03/18 15:00 Dose: 30 mg Losartan Potassium (Cozaar) 50 mg PO 1800 [facility] PRN Reason: Protocol Pantoprazole Sodium (Protonix Ec Tab) 20 mg PO 0600 [facility] PRN Reason: Protocol Last Admin: 03/03/18 05:35 Dose: 20 mg Tramadol HCl (Ultram) 25 mg PO TID PRN; Protocol PRN Reason: Pain, severe (8-10) Warfarin Sodium (Coumadin) 2 mg PO 1800 [facility] PRN Reason: Protocol Last Admin: 03/02/18 17:48 Dose: 2 mg - Labs Labs: 03/02/18 07:53 03/02/18 07:53 PT 28.8 SECONDS (9.4-12.5) H 03/03/18 06:10 INR 2.46 (0.93-1.08) H 03/03/18 06:10 - Constitutional Appears: Well, Non-toxic - Head Exam Head Exam: ATRAUMATIC, NORMOCEPHALIC - Eye Exam Eye Exam: EOMI, Normal appearance - ENT Exam ENT Exam: Mucous Membranes Moist - Neck Exam Neck Exam: Normal Inspection - Respiratory Exam Respiratory Exam: Clear to Ausculation Bilateral, NORMAL BREATHING PATTERN. absent: Accessory Muscle Use - Cardiovascular Exam Cardiovascular Exam: Irregular Rhythm, +S1, +S2 - GI/Abdominal Exam GI & Abdominal Exam: Soft, Normal Bowel Sounds - Extremities Exam Extremities Exam: Normal Inspection. absent: Calf Tenderness - Back Exam Back Exam: NORMAL INSPECTION. 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 Patient was seen by PT in the ED and they recommend continuing physical therapy at this time. A) TCU for weakness and gait instability - Physical therapy 1. Right knee pain - Intraacticular injection with steroid injection Right knee X-ray negative for fracture, showed meniscal calcifications Right leg doppler ultrasound negative Right hip x-ray negative Tramadol 25 mg PO TID for pain Physical therapy recommends TCU 2. Elevated liver enzymes - Hepatitis panel negative - Statin held 3. Anticoagulation for atrial fibrillation - INR today was 2.46 will continue to adjust Coumadin dosage based on daily INRs 4. A-fib - Diltiazem 30 mg QID 5. HTN - Losartan incresed from 25 mg to 50 PO daily 6. YANIV Continue CPAP 7. HLD Hold lipitor till LFTS completely normalize - TGs 129, Cholesterol 110, LDL 36, HDL 49 8) CVA - Will restart Statin once LFTs are normal 8. Prophylaxis - Patient is already on Warfarin - Protonix 40 PO daily Case reviewed and discussed with attending physician, Dr. Johnson <Kyleigh Johnson - Last Filed: 03/04/18 15:57> Objective - Vital Signs/Intake and Output Vital Signs (last 24 hours): Temp Pulse Resp BP Pulse Ox 98.4 F 77 16 144/93 H 98 03/04/18 10:00 03/04/18 15:16 03/04/18 10:00 03/04/18 15:16 03/04/18 10:00 - Medications Medications: Current Medications Diltiazem HCl (Cardizem) 30 mg PO QID [facility] PRN Reason: Protocol Last Admin: 03/04/18 15:16 Dose: 30 mg Losartan Potassium (Cozaar) 50 mg PO 1800 [facility] PRN Reason: Protocol Last Admin: 03/04/18 09:44 Dose: Not Given Pantoprazole Sodium (Protonix Ec Tab) 20 mg PO 0600 [facility] PRN Reason: Protocol Last Admin: 03/04/18 06:07 Dose: 20 mg Tramadol HCl (Ultram) 25 mg PO TID PRN; Protocol PRN Reason: Pain, severe (8-10) Warfarin Sodium (Coumadin) 3 mg PO 1800 [facility] PRN Reason: Protocol - Labs Labs: 03/02/18 07:53 03/02/18 07:53 PT 28.8 SECONDS (9.4-12.5) H 03/03/18 06:10 INR 2.46 (0.93-1.08) H 03/03/18 06:10 Attending/Attestation - Attestation I have personally seen and examined this patient.: Yes I have fully participated in the care of the patient.: Yes I have reviewed all pertinent clinical information, including history, physical exam and plan: Yes Notes (Text): 03/04/18 15:52 Attending note ; Patient seen and examined the resident in TCU . Patient is a 87 year old female with past medical history of CVA, afib on coumadin, hypertension and dyslipidemia who presented with complaint of progressive right leg/knee pain and weakness. Xray of the right knee and hip xray were negative. LE doppler was also negative. Review of prior imaging reveals degenerative disc spine disease. She was seen by orthopedics and is s/ p cortisone injection with improvement of symptoms. Elevated LFTs; currently improving. Recent imaging shows fatty liver. Hepatitis panel was negative. Statin was on hold for now while monitoring LFTs. A. fib on Coumadin. INR is 2.46. Continue physical therapy. Upon discharge the patient will follow-up with PMD .
[2018-03-04] MEDS: Pantoprazole 20 mg EC Tab PO SCH (06:07)
[2018-03-04 19:19] LABS: INR 2.26 (0.93-1.08); PROTHROMBIN TIME 26.2 SECONDS (9.4-12.5)
[2018-03-05] MEDS: Pantoprazole 20 mg EC Tab PO SCH (06:14)
[2018-03-05 15:37] LABS: URINE BILIRUBIN NEGATIVE (NEGATIVE); URINE BLOOD NEGATIVE (NEGATIVE); URINE GLUCOSE (UA) NEGATIVE (NEGATIVE); URINE LEUKOCYTE ESTERASE NEGATIVE Leu/uL (NEGATIVE); URINE PROTEIN TRACE mg/dL (<30 mg/dL)
[2018-03-05 15:38] LABS: URINE APPEARANCE CLEAR (CLEAR); URINE COLOR YELLOW (YELLOW)
[2018-03-05 16:15] LABS: URINE RBC 0 - 2 /hpf (0-2)
[2018-03-05 16:16] LABS: URINE BACTERIA MANY (NEG)
--- NOTE | 2018-03-05 18:22 | CP.PCM.PN ---
<Lawrence Vaughn - Last Filed: 03/05/18 18:37> Subjective - Date & Time of Evaluation Date of Evaluation: 03/05/18 Time of Evaluation: 18:19 - Subjective Subjective: Lawrence Vaughn PGY-1: Hospitalist Service Patient seen and examined at bedside. Patient reports nocturia, but no dysuria. She didn't sleep well as the BIPAP/CPAP machine she has on here just isn't like the home-one. Otherwise, no chest pain, dyspnea, fever, chills, or leg pain. She was sitting comfortably at the bedside. Objective - Vital Signs/Intake and Output Vital Signs (last 24 hours): Temp Pulse Resp BP Pulse Ox 98.2 F 80 20 106/70 99 03/05/18 16:00 03/05/18 17:51 03/05/18 16:00 03/05/18 17:51 03/05/18 16:00 - Medications Medications: Current Medications Diltiazem HCl (Cardizem) 30 mg PO QID [facility] PRN Reason: Protocol Last Admin: 03/05/18 17:50 Dose: 30 mg Losartan Potassium (Cozaar) 50 mg PO 1800 [facility] PRN Reason: Protocol Last Admin: 03/05/18 17:51 Dose: 50 mg Pantoprazole Sodium (Protonix Ec Tab) 20 mg PO 0600 [facility] PRN Reason: Protocol Last Admin: 03/05/18 06:14 Dose: 20 mg Tramadol HCl (Ultram) 25 mg PO TID PRN; Protocol PRN Reason: Pain, severe (8-10) Warfarin Sodium (Coumadin) 3 mg PO 1800 [facility] PRN Reason: Protocol Last Admin: 03/05/18 17:50 Dose: 3 mg - Labs Labs: 03/02/18 07:53 03/02/18 07:53 PT 26.2 SECONDS (9.4-12.5) H 03/04/18 18:40 INR 2.26 (0.93-1.08) H 03/04/18 18:40 - Constitutional Appears: Well, Non-toxic - Head Exam Head Exam: ATRAUMATIC, NORMOCEPHALIC - Eye Exam Eye Exam: EOMI, Normal appearance - ENT Exam ENT Exam: Mucous Membranes Moist - Neck Exam Neck Exam: Normal Inspection - Respiratory Exam Respiratory Exam: Clear to Ausculation Bilateral, NORMAL BREATHING PATTERN. absent: Accessory Muscle Use - Cardiovascular Exam Cardiovascular Exam: Irregular Rhythm, +S1, +S2 - GI/Abdominal Exam GI & Abdominal Exam: Soft, Normal Bowel Sounds - Extremities Exam Extremities Exam: Normal Inspection. absent: Calf Tenderness - Back Exam Back Exam: NORMAL INSPECTION. 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 Patient was seen by PT in the ED and they recommend continuing physical therapy at this time. A) TCU for weakness and gait instability - Physical therapy 1. Right knee pain - Intraacticular injection with steroid injection - Right knee X-ray negative for fracture, showed meniscal calcifications - Right leg doppler ultrasound negative - Right hip x-ray negative - Tramadol 25 mg PO TID for pain - Physical therapy recommends TCU 2. Elevated liver enzymes - Hepatitis panel negative 3. Anticoagulation for atrial fibrillation - Coumadin 3 mg daily 4. A-fib - Diltiazem 30 mg QID 5. HTN - Losartan incresed from 25 mg to 50 PO daily - Blood pressure has improved and patient denies any light headedness or orthostasis 6. YANIV Continue CPAP 7. HLD - TGs 129, Cholesterol 110, LDL 36, HDL 49 8) CVA - Restarting Lipitor at 10 mg rather than home dose of 20 mg starting tomorrow 9) Nocturia - UA negative, will await cultures, patient asymptomatic 8. Prophylaxis - Patient is already on Warfarin - Protonix 40 PO daily Case reviewed and discussed with attending physician, Dr. Johnson Patient to follow up with PMD, Dr. Hall upon discharge <Kyleigh Johnson - Last Filed: 03/05/18 18:48> Objective - Vital Signs/Intake and Output Vital Signs (last 24 hours): Temp Pulse Resp BP Pulse Ox 98.2 F 80 20 106/70 99 03/05/18 16:00 03/05/18 17:51 03/05/18 16:00 03/05/18 17:51 03/05/18 16:00 - Medications Medications: Current Medications Atorvastatin Calcium (Lipitor) 10 mg PO DIN [facility] Diltiazem HCl (Cardizem) 30 mg PO QID [facility] PRN Reason: Protocol Last Admin: 03/05/18 17:50 Dose: 30 mg Losartan Potassium (Cozaar) 50 mg PO 1800 [facility] PRN Reason: Protocol Last Admin: 03/05/18 17:51 Dose: 50 mg Pantoprazole Sodium (Protonix Ec Tab) 20 mg PO 0600 [facility] PRN Reason: Protocol Last Admin: 03/05/18 06:14 Dose: 20 mg Tramadol HCl (Ultram) 25 mg PO TID PRN; Protocol PRN Reason: Pain, severe (8-10) Warfarin Sodium (Coumadin) 3 mg PO 1800 [facility] PRN Reason: Protocol Last Admin: 03/05/18 17:50 Dose: 3 mg - Labs Labs: 03/02/18 07:53 03/02/18 07:53 PT 26.2 SECONDS (9.4-12.5) H 03/04/18 18:40 INR 2.26 (0.93-1.08) H 03/04/18 18:40 Attending/Attestation - Attestation I have personally seen and examined this patient.: Yes I have fully participated in the care of the patient.: Yes I have reviewed all pertinent clinical information, including history, physical exam and plan: Yes Notes (Text): 03/05/18 18:46 Attending note; Patient seen and examined the resident in TCU . Patient is a 87 year old female with past medical history of CVA, afib on coumadin, hypertension and dyslipidemia who presented with complaint of progressive right leg/knee pain and weakness. Xray of the right knee and hip xray were negative. LE doppler was also negative. Review of prior imaging reveals degenerative disc spine disease. She was seen by orthopedics and is s/ p cortisone injection with improvement of symptoms. Patient is complaining of urinary symptoms. No fevers or chills. UA and urine culture ordered. A. fib on Coumadin. INR is 2.26. Continue physical therapy. Discharge plan for March 08. hold worker evaluation appreciated in discharge planning. Upon discharge the patient will follow-up with PMD .
[2018-03-06] MEDS: Pantoprazole 20 mg EC Tab PO SCH (06:18)
[2018-03-07] MEDS: Pantoprazole 20 mg EC Tab PO SCH (05:38)
--- NOTE | 2018-03-07 11:26 | CP.PCM.PN ---
<Regina Mckeon - Last Filed: 03/07/18 11:21> Subjective - Date & Time of Evaluation Date of Evaluation: 03/07/18 Time of Evaluation: 11:21 - Subjective Subjective: Regina Mckeon, PGY1, Medicine Progress Note for Dr Johnson: Patient seen and examined at bedside. No acute events overnight. Patient reports resolution of her right leg pain s/p injection. Denies fevers, chills, nausea, vomiting, abdominal pain, leg swelling. Objective - Vital Signs/Intake and Output Vital Signs (last 24 hours): Temp Pulse Resp BP Pulse Ox 98.8 F 82 20 140/86 94 L 03/06/18 10:00 03/06/18 21:21 03/06/18 10:00 03/07/18 09:11 03/06/18 10:00 - Medications Medications: Current Medications Atorvastatin Calcium (Lipitor) 10 mg PO DIN [facility] Last Admin: 03/06/18 18:08 Dose: 10 mg Diltiazem HCl (Cardizem) 30 mg PO QID [facility] PRN Reason: Protocol Last Admin: 03/07/18 09:11 Dose: 30 mg Losartan Potassium (Cozaar) 50 mg PO 1800 [facility] PRN Reason: Protocol Last Admin: 03/06/18 18:08 Dose: 50 mg Pantoprazole Sodium (Protonix Ec Tab) 20 mg PO 0600 [facility] PRN Reason: Protocol Last Admin: 03/07/18 05:38 Dose: 20 mg Tramadol HCl (Ultram) 25 mg PO TID PRN; Protocol PRN Reason: Pain, severe (8-10) Warfarin Sodium (Coumadin) 3 mg PO 1800 [facility] PRN Reason: Protocol Last Admin: 03/06/18 18:07 Dose: 3 mg - Labs Labs: 03/02/18 07:53 03/02/18 07:53 PT 26.2 SECONDS (9.4-12.5) H 03/04/18 18:40 INR 2.26 (0.93-1.08) H 03/04/18 18:40 - Constitutional Appears: Non-toxic, No Acute Distress - Head Exam Head Exam: ATRAUMATIC, NORMOCEPHALIC - Eye Exam Eye Exam: EOMI, PERRL. absent: Conjunctival injection, Nystagmus, Scleral icterus Pupil Exam: NORMAL ACCOMODATION, PERRL. absent: Fixed, Irregular, Miosis, Unequal - ENT Exam ENT Exam: Mucous Membranes Moist - Neck Exam Neck Exam: Full ROM - Respiratory Exam Respiratory Exam: Clear to Ausculation Bilateral, NORMAL BREATHING PATTERN. absent: Accessory Muscle Use, Rales, Rhonchi, Wheezes, Stridor - Cardiovascular Exam Cardiovascular Exam: RRR, +S1, +S2. absent: Murmur - GI/Abdominal Exam GI & Abdominal Exam: Soft, Normal Bowel Sounds. absent: Distended, Firm, Guarding, Rigid, Tenderness, Mass, Organomegaly - Extremities Exam Extremities Exam: Normal Inspection. 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 Patient transfered to TCU for rehab and management: Right knee pain: - Intraacticular injection with steroid injection - Right knee X-ray negative for fracture, showed meniscal calcifications - Right leg doppler ultrasound negative - Right hip x-ray negative - Tramadol 25 mg PO TID for pain - Physical therapy recommends TCU. In TCU for rehab. Elevated liver enzymes - Hepatitis panel negative, trended down Anticoagulation for atrial fibrillation - Coumadin 3 mg daily A-fib - Diltiazem 30 mg QID HTN - Losartan incresed from 25 mg to 50 PO daily - Blood pressure has improved and patient denies any light headedness or orthostasis YANIV Continue CPAP HLD - TGs 129, Cholesterol 110, LDL 36, HDL 49 CVA - Restarting Lipitor at 10 mg rather than home dose of 20 mg starting tomorrow Nocturia - UA negative, will await cultures, patient asymptomatic Prophylaxis - Patient is already on Warfarin - Protonix 40 PO daily Case reviewed and discussed with attending physician, Dr. Johnson Patient to follow up with PMD, Dr. Hall upon discharge Regina Mckeon, PGY1 <Kyleigh Johnson - Last Filed: 03/08/18 10:06> Objective - Vital Signs/Intake and Output Vital Signs (last 24 hours): Temp Pulse Resp BP Pulse Ox 97.9 F 64 20 148/76 98 03/08/18 06:00 03/08/18 09:22 03/08/18 06:00 03/08/18 09:22 03/08/18 06:00 - Medications Medications: Current Medications Atorvastatin Calcium (Lipitor) 10 mg PO DIN [facility] Last Admin: 03/07/18 17:34 Dose: 10 mg Diltiazem HCl (Cardizem) 30 mg PO QID [facility] PRN Reason: Protocol Last Admin: 03/08/18 09:22 Dose: 30 mg Losartan Potassium (Cozaar) 50 mg PO 1800 [facility] PRN Reason: Protocol Last Admin: 03/07/18 17:34 Dose: 50 mg Pantoprazole Sodium (Protonix Ec Tab) 20 mg PO 0600 [facility] PRN Reason: Protocol Last Admin: 03/08/18 05:58 Dose: 20 mg Tramadol HCl (Ultram) 25 mg PO TID PRN; Protocol PRN Reason: Pain, severe (8-10) Warfarin Sodium (Coumadin) 3 mg PO 1800 [facility] PRN Reason: Protocol Last Admin: 03/07/18 17:34 Dose: 3 mg - Labs Labs: 03/02/18 07:53 03/02/18 07:53 PT 26.2 SECONDS (9.4-12.5) H 03/04/18 18:40 INR 2.26 (0.93-1.08) H 03/04/18 18:40 Attending/Attestation - Attestation I have personally seen and examined this patient.: Yes I have fully participated in the care of the patient.: Yes I have reviewed all pertinent clinical information, including history, physical exam and plan: Yes Notes (Text): 03/08/18 10:05 Attending note; Patient seen and examined the resident in TCU . Patient is a 87 year old female with past medical history of CVA, afib on coumadin, hypertension and dyslipidemia who presented with complaint of progressive right leg/knee pain and weakness. Xray of the right knee and hip xray were negative. LE doppler was also negative. Review of prior imaging reveals degenerative disc spine disease. She was seen by orthopedics and is s/ p cortisone injection with improvement of symptoms. Patient is complaining of urinary symptoms. No fevers or chills. UA is normal. Urine culture is pending. A. fib on Coumadin. INR is 2.26. Continue physical therapy. nursing home social worker evaluation appreciated in discharge planning. Plan for discharge on Friday. Patient and family aware of discharge plan. Upon discharge the patient will follow-up with PMD . 03/08/18 10:05
[2018-03-08] MEDS: Pantoprazole 20 mg EC Tab PO SCH (05:58)
[2018-03-08 07:50] VITALS: O2SAT 98
[2018-03-08 16:49] VITALS: RESP 16; TEMP 98.1
[2018-03-09] MEDS: Pantoprazole 20 mg EC Tab PO SCH (05:33)
[2018-03-09 11:11] VITALS: BP 139/96
[2018-03-09 12:24] VITALS: PULSE 88
--- NOTE | 2018-03-09 14:31 | CP.PCM.DIS ---
Provider - Provider Date of Admission: 02/28/18 11:43 Attending physician: Kyleigh Johnson MD Primary care physician: Jose Roberto Hall MD Time Spent in preparation of Discharge (in minutes): 45 Diagnosis - Discharge Diagnosis (1) Osteoarthritis of right knee Status: Chronic Priority: Medium (2) History of atrial fibrillation Status: Chronic Priority: Medium (3) History of hypertension Status: Chronic Priority: Medium Hospital Course - Lab Results Lab Results: Micro Results 03/05/18 15:25 Urine,Clean Catch Urine Culture - Final <10,000 CFU/ML. MULTIPLE SPECIES. PROBABLE CONTAMINATION. Most Recent Lab Values WBC 9.7 10^3/ul (4.5-11.0) D 03/02/18 07:53 RBC 4.98 10^6/uL (3.5-6.1) 03/02/18 07:53 Hgb 15.2 g/dL (12.0-16.0) 03/02/18 07:53 Hct 44.9 % (36.0-48.0) 03/02/18 07:53 MCV 90.2 fl (80.0-105.0) 03/02/18 07:53 MCH 30.5 pg (25.0-35.0) 03/02/18 07:53 MCHC 33.9 g/dl (31.0-37.0) 03/02/18 07:53 RDW 14.4 % (11.5-14.5) 03/02/18 07:53 Plt Count 194 10^3/uL (120.0-450.0) 03/02/18 07:53 MPV 10.3 fl (7.0-11.0) 03/02/18 07:53 Gran % 84.5 % (50.0-68.0) H 03/02/18 07:53 Lymph % (Auto) 10.5 % (22.0-35.0) L 03/02/18 07:53 [place] % (Auto) 5.0 % (1.0-6.0) 03/02/18 07:53 Eos % (Auto) 0.0 % (1.5-5.0) L 03/02/18 07:53 Baso % (Auto) 0.0 % (0.0-3.0) 03/02/18 07:53 Gran # 8.17 (1.4-6.5) H 03/02/18 07:53 Lymph # (Auto) 1.0 (1.2-3.4) L 03/02/18 07:53 [place] # (Auto) 0.5 (0.1-0.6) 03/02/18 07:53 Eos # (Auto) 0.0 (0.0-0.7) 03/02/18 07:53 Baso # (Auto) 0.00 K/mm3 (0.0-2.0) 03/02/18 07:53 PT 26.2 SECONDS (9.4-12.5) H 03/04/18 18:40 INR 2.26 (0.93-1.08) H 03/04/18 18:40 Sodium 143 mmol/L (132-148) 03/02/18 07:53 Potassium 4.6 mmol/L (3.6-5.0) 03/02/18 07:53 Chloride 108 mmol/L (98-107) H 03/02/18 07:53 Carbon Dioxide 24 mmol/L (21-33) 03/02/18 07:53 Anion Gap 16 (10-20) 03/02/18 07:53 BUN 28 mg/dL (7-21) H 03/02/18 07:53 Creatinine 0.7 mg/dl (0.7-1.2) 03/02/18 07:53 Est GFR ( Amer) > 60 03/02/18 07:53 Est GFR (Non-Af Amer) > 60 03/02/18 07:53 Random Glucose 121 mg/dL (70-110) H 03/02/18 07:53 Calcium 9.1 mg/dL (8.4-10.5) 03/02/18 07:53 Total Bilirubin 0.8 mg/dL (0.2-1.3) 03/02/18 07:53 AST 36 U/L (14-36) D 03/02/18 07:53 ALT 74 U/L (7-56) H 03/02/18 07:53 Alkaline Phosphatase 79 U/L (38-126) 03/02/18 07:53 Lactate Dehydrogenase 463 U/L (333-699) 03/02/18 03:00 Total Creatine Kinase 47 U/L (35-230) 03/02/18 03:00 Troponin I < 0.01 ng/mL 03/02/18 03:00 Total Protein 6.7 g/dL (5.8-8.3) 03/02/18 07:53 Albumin 4.0 g/dL (3.0-4.8) 03/02/18 07:53 Globulin 2.7 gm/dL 03/02/18 07:53 Albumin/Globulin Ratio 1.5 (1.1-1.8) 03/02/18 07:53 Urine Color Yellow (YELLOW) 03/05/18 15:25 Urine Appearance Clear (CLEAR) 03/05/18 15:25 Urine pH 6.0 (4.7-8.0) 03/05/18 15:25 Ur Specific [place] 1.025 (1.005-1.035) 03/05/18 15:25 Urine Protein Trace mg/dL (<30 mg/dL) H 03/05/18 15:25 Urine Glucose (UA) Negative mg/dL (NEGATIVE) 03/05/18 15:25 Urine Ketones Negative mg/dL (NEGATIVE) 03/05/18 15:25 Urine Blood Negative (NEGATIVE) 03/05/18 15:25 Urine Nitrate Negative (NEGATIVE) 03/05/18 15:25 Urine Bilirubin Negative (NEGATIVE) 03/05/18 15:25 Urine Urobilinogen 1.0 E.U./dL (<1 E.U./dL) H 03/05/18 15:25 Ur Leukocyte Esterase Negative Monica/uL (NEGATIVE) 03/05/18 15:25 Urine RBC 0 - 2 /hpf (0-2) 03/05/18 15:25 Urine WBC 1 - 3 /hpf (0-6) 03/05/18 15:25 Ur Epithelial Cells 6 - 8 /hpf (0-5) 03/05/18 15:25 Urine Bacteria Many (NEG) 03/05/18 15:25 Urine Other Fiber 03/05/18 15:25 - Hospital Course Hospital Course: 87 year old female with 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 Patient was found to have OA of right knee. During hospital course on the floor, the patient underwent X-rays of the right knee, pelvis, with orthopedic consulted who performed a steroid injection in the knee. Patient subsequently discharged to the TCU for strengthening. While in TCU, pain was controlled with PRN pain medications, BP was managed with increasing Losartan 25mg QD to 50mg PO QD, and is to continue with latter dose at home. Patient continued on home dose of coumadin, and INR was trended and was therapeutic. Per PT recommendation , patient is to walk with assistance of roller walker. Today, the patient was seen and examin at bedside. Patient had no complaints overnight. As patient is medically stabled, she was discharged. Patient was consulted on the coumadin, and the risk of fall while. Discussed with patient to continue with home meds and that Losartan was increased to 50mg. Recommended that the patient see her PMD within 1 week of discharge, and to return to the ED if symptoms persist or worsen. Discharge Medications: Atorvastatin 20mg tab PO DIN Diltiazem 30mg tab PO QID Losartan 50mg tab PO 1800 QDaily Pantoprazole 20mg Ect PO QDaily Warfarin 3mg tab PO 1800 QDaily Discharge Exam - Head Exam Head Exam: ATRAUMATIC, NORMAL INSPECTION, NORMOCEPHALIC - Eye Exam Eye Exam: Normal appearance. absent: Conjunctival injection, Periorbital swelling Pupil Exam: NORMAL ACCOMODATION - ENT Exam ENT Exam: Mucous Membranes Moist, Normal Exam - Neck Exam Neck exam: Full Rom, Normal Inspection - Respiratory Exam Respiratory Exam: NORMAL BREATHING PATTERN, UNREMARKABLE. absent: Accessory Muscle Use, Chest Wall Tenderness, Decreased Breath Sounds, Rales, Rhonchi, Respiratory Distress, Stridor - Cardiovascular Exam Cardiovascular Exam: REGULAR RHYTHM, RRR, +S1, +S2. absent: Bradycardia, Tachycardia, Clicks, Diastolic murmur, Irregular Rhythm, JVD, Rubs, +S4, Systolic Murmur - GI/Abdominal Exam GI & Abdominal Exam: Normal Bowel Sounds, Soft, Unremarkable. absent: Distended , Firm, Guarding, Tenderness - Extremities Exam Extremities exam: full ROM, normal inspection, pedal pulses present Additional comments: ivan's and heberden's nodes appreciated on inspection of bilateral hands - Back Exam Back exam: FULL ROM, NORMAL INSPECTION. absent: CVA tenderness (L), CVA tenderness (R), muscle spasm, paraspinal tenderness - Neurological Exam Neurological exam: Alert, CN II-XII Intact, Normal Gait (uses roller walker ), Oriented x3 - Psychiatric Exam Psychiatric exam: Normal Affect, Normal Mood - Skin Skin Exam: Dry, Intact, Normal Color, Warm Discharge Plan - Discharge Medications Prescriptions: Losartan [Cozaar] 50 mg PO 1800 30 Days tab Walker [Rolling Walker] 1 dev XX DAILY #1 dev - Follow Up Plan Condition: GOOD Disposition: HOME/ ROUTINE Instructions: Atrial Fibrillation (DC), Chronic Knee Pain (DC) Additional Instructions: - Continue with all home meds, except BP medication Losartan 50 mg daily. - Follow up coumadin level with Cardiology - Follow up with PMD in 1 week - Return to ER for any concerns. Referrals: Jose Roberto Hall MD [Primary Care Provider] -
== END 2018-03-09 14:29 | disposition home or self-care (01) | DRG 946 ==
LOC: TRCU 11:43
PROVIDERS: ADMIT Internal Medicine; ATTEND Internal Medicine
PROC: F08Z4ZZ Home Management Treatment (ICD-10-PCS; 2018-02-28)
PROC: F07Z9ZZ Gait Training/Functional Ambulation Treatment (ICD-10-PCS; principal; 2018-03-01)
PROC: 5A09457 Assistance with Respiratory Ventilation, 24-96 Consecutive Hours, Continuous Positive Airway Pressure (ICD-10-PCS; 2018-03-01)
DX: R53.1 Weakness (principal); M17.11 Unilateral primary osteoarthritis, right knee; I48.91 Unspecified atrial fibrillation; Z79.01 Long term (current) use of anticoagulants; I10 Essential (primary) hypertension; G47.33 Obstructive sleep apnea (adult) (pediatric); E78.5 Hyperlipidemia, unspecified; Z86.73 Personal history of transient ischemic attack (TIA), and cerebral infarction without residual deficits; Z91.81 History of falling; Z87.891 Personal history of nicotine dependence

== ENCOUNTER 2018-06-05 09:16 | Emergency (ER) | payer MEDICARE ==
--- NOTE | 2018-06-05 09:28 | ED PDOC ---
Arrival/HPI - General Historian: Patient - History of Present Illness Narrative History of Present Illness (Text): 06/05/18 09:28 87 yo female come in accompanied by daughter for evaluation of left foot pain gradually developed for past 4 days after" had injection done to my Left foot by for pain". Pt reports, pain is localized over plantar aspect left foot, worse with weight bearing. Pt sts, " have to walk with walker now". Otherwise, pt denies fever, chills, denies obvious deformity,or skin changes to left foot, swelling, redness, denies new weakness, sensory or vascular deficits to left foot. Pt denies any other active complaints. Noted high BP on triage, pt sts " did not take my medication this AM', pt denies headache, dizziness, visual changes, focal deficits, CP, SOB, dyspnea, diaphoresis, palpitation, abd. pain, N/V, back pain. 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 Uses a cane for ambulation Allergy: none Meds: Reviewed, as per MAR. <Dipti Fontenot - Last Filed: 06/05/18 15:53> <James Hdz - Last Filed: 06/05/18 17:07> - General Time Seen by Provider: 06/05/18 09:23 Past Medical History - Provider Review Nursing Documentation Reviewed: Yes - Travel History Have you recently traveled outside [place] w/in the past 3 mons?: No - Infectious Disease Hx of Infectious Diseases: None - Cardiac Hx Hypertension: Yes - Pulmonary Hx Respiratory Disorders: No - Neurological HX Cerebrovascular Accident: Yes (x2) - HEENT Hx Cataracts: Yes Other/Comment: elim ira. bilateral hearing aid - Renal Hx Renal Disorder: No - Endocrine/Metabolic Hx Endocrine Disorders: No - Hematological/Oncological Hx Blood Transfusions: No Hx Blood Transfusion Reaction: No - Integumentary Hx Dermatological Disorder: No - Musculoskeletal/Rheumatological Hx Arthritis: Yes - Gastrointestinal Hx Gastrointestinal Disorders: Yes (FAIR APPETITE.SMALL FREQ FEEDING) - Genitourinary/Gynecological Hx Genitourinary Disorders: Yes (SOME URINARY FREQUENCY,SOME INCONTINENCY,USES POISE PADS.) Hx Reproductive Disorders: No - Psychiatric Hx Depression: No Hx Emotional Abuse: No Hx Physical Abuse: No Hx Substance Use: No - Surgical History Hx Cholecystectomy: Yes - Anesthesia Hx Anesthesia: Yes Hx Anesthesia Reactions: No Hx Malignant Hyperthermia: No - Suicidal Assessment Feels Threatened In Home Enviroment: No <Dipti Fontenot - Last Filed: 06/05/18 15:53> Family/Social History - Physician Review Nursing Documentation Reviewed: Yes Family/Social History: No Known Family HX Smoking Status: Former Smoker Hx Alcohol Use: No Hx Substance Use: No <Dipti Fontenot - Last Filed: 06/05/18 15:53> Allergies/Home Meds <Dipti Fontenot - Last Filed: 06/05/18 15:53> <James Hdz - Last Filed: 06/05/18 17:07> Allergies/Adverse Reactions: Allergies No Known Allergies Allergy (Verified 02/28/18 12:05) Home Medications: Home Meds Medication Instructions Recorded Confirmed diltiaZEM [Cardizem] 30 mg PO DAILY 09/13/15 06/05/18 Losartan [Cozaar] 25 mg PO DAILY 06/05/18 06/05/18 Warfarin [Coumadin] 4 mg PO DAILY 06/05/18 06/05/18 Review of Systems - Physician Review All systems were reviewed & negative as marked: Yes - Review of Systems Constitutional: Normal Eyes: Normal ENT: Normal Respiratory: Normal Cardiovascular: Normal Gastrointestinal: Normal Genitourinary Female: Normal Musculoskeletal: Other (Left foot pain) Skin: Normal. absent: Rash, Skin Lesions Neurological: Normal Endocrine: Normal Hemo/Lymphatic: Normal Psychiatric: Normal <Dipti Fontenot - Last Filed: 06/05/18 15:53> Physical Exam Vital Signs Reviewed: Yes Temperature: Afebrile Blood Pressure: Hypertensive Pulse: Regular Respiratory Rate: Normal Appearance: Positive for: Well-Appearing, Non-Toxic, Comfortable Pain Distress: Moderate Mental Status: Positive for: Alert and Oriented X 3 - Systems Exam Conjunctiva: Present: Normal Mouth: Present: Moist Mucous Membranes Pharnyx: No: ERYTHEMA Neck: Present: Trachea Midline. No: JVD, Bruit Respiratory/Chest: Present: Clear to Auscultation, Good Air Exchange. No: Respiratory Distress, Accessory Muscle Use Cardiovascular: Present: Normal S1, S2, Irregular Rhythm. No: Murmurs, Tachycardic Abdomen: No: Tenderness, Distention, Peritoneal Signs, Rebound, Guarding Back: No: CVA Tenderness Upper Extremity: Present: Normal Inspection, Normal ROM, NORMAL PULSES, Neurovascularly Intact. No: Deformity Lower Extremity: Present: NORMAL PULSES, Normal ROM, Tenderness (over plantar aspect left foot along foot arch. no edema, no erythema, no open wounds. ), Neurovascularly Intact, Capillary Refill < 2 s (Left foot). No: Edema, CALF TENDERNESS, Cyanosis, Swelling, Deformity Neurological: Present: GCS=15, Speech Normal, Normal Sensory Function, Norm Deep Tendon Reflexes Skin: Present: Warm, Dry, Normal Color. No: Rashes Psychiatric: Present: Alert, Oriented x 3, Normal Insight, Normal Concentration <Dipti Fontenot - Last Filed: 06/05/18 15:53> Vital Signs Temp Pulse Resp BP Pulse Ox 06/05/18 12:49 80 18 170/104 H 98 06/05/18 11:46 78 144/84 06/05/18 11:08 74 18 144/84 97 06/05/18 09:16 98.2 F 89 18 152/102 H 98 <James Hdz - Last Filed: 06/05/18 17:07> Medical Decision Making ED Course and Treatment: 06/05/18 At 10:12, case discussed with pt's Radiology Manager , " if tendon intact, no evidence of cellulitis, recommend anti-inflammatory, ice and will see her on Friday06/08/18". At 11:10, pt was re-evaluation, appears comofrtable in bed. Afebrile, hemodynamicalys table. non-toxic. Neck: Supple Lungs: CTA b/L, BS equal B/L CVS: (+)S1S2, irr/irr, hx of afib Abd: benign. Left foot: mild tenderness along plantar arch over left sole. No evidence of tendon rupture, no edema, no erythema, no proximal streaking. FAEROM, no neurovascular deficits. Neurologically intact. Blood work review and appears baseline. Doppler US LLE (-) DVT left foot xray (+) osteoporosis, DJD, no acute fx or dislocation. After ED treatment pt was asked to walk with walker and appears comfortable with only minor discomfort over Left foot on ambulation. case discussed with DR. Hdz and pt was evaluated, witnessed patient is ambulatory w/walker without significant discomfort. Plan is discharge with outpt f/u by Podiatry as scheduled on 06/08/18. Case discussed with and results review, agrees with plan for discharge. results review and discussed with pt and family member, agrees with plan. - RAD Interpretation Narrative RAD Interpretations (Text): 06/05/18 Dopler US of LLE (-) for DVT, prelim by tech Radiology Orders: IMPRESSION: No acute fracture, subluxation or dislocation. Advanced osteopenia suggests prominent osteoporosis. Advanced osteoarthritis seen throughout the forefoot, especially the 1st metatarsophalangeal joint with severe hallux valgus deformity evident. Lesser degenerative changes are otherwise seen throughout the remainder of the foot. Moderate plantar calcaneal spur. <Dipti Fontenot - Last Filed: 06/05/18 15:53> - Lab Interpretations Lab Results: 06/05/18 10:10 06/05/18 10:50 Lab Results 06/05/18 10:50: Sodium 142, Potassium 3.9, Chloride 105, Carbon Dioxide 26, Anion Gap 15, BUN 19, Creatinine 0.7, Est GFR ( Amer) > 60, Est GFR (Non- Af Amer) > 60, Random Glucose 101, Calcium 9.3, Total Bilirubin 1.0, AST 50 H D, ALT 51, Alkaline Phosphatase 91, Total Protein 6.9, Albumin 4.3, Globulin 2.6, Albumin/Globulin Ratio 1.6 06/05/18 10:50: PT 32.4 H, INR 2.76, APTT 39.5 H 06/05/18 10:10: WBC 10.7, RBC 5.04, Hgb 15.9, Hct 47.2, MCV 93.7 D, MCH 31.5, MCHC 33.7, RDW 14.6 H, Plt Count 196, MPV 10.6, Gran % 70.1 H, Lymph % (Auto) 20.7 L, [place] % (Auto) 8.9 H, Eos % (Auto) 0.1 L, Baso % (Auto) 0.2, Gran # 7.47 H, Lymph # (Auto) 2.2, [place] # (Auto) 1.0 H, Eos # (Auto) 0.0, Baso # (Auto) 0.02 - RAD Interpretation Radiology Orders: 06/05/18 09:39 FOOT LEFT 3 VIEWS ROUTINE [RAD] Stat DUPLEX LOWER EXTRM VEIN LEFT [US] Stat - Medication Orders Current Medication Orders: Discontinued Medications Diltiazem HCl (Cardizem) 30 mg PO STAT STA Stop: 06/05/18 10:22 Last Admin: 06/05/18 11:46 Dose: 30 mg Losartan Potassium (Cozaar) 25 mg PO STAT STA Stop: 06/05/18 10:21 Last Admin: 06/05/18 11:46 Dose: 25 mg MAR Pulse and Blood Pressure Document 06/05/18 11:46 EQ (Rec: 06/05/18 11:46 EQ [id number]) Pulse Pulse Rate (60-90) 78 Blood Pressure Blood Pressure (100/60-150/90) 144/84 Pantoprazole Sodium (Protonix Ec Tab) 20 mg PO ONCE ONE Stop: 06/05/18 12:32 Last Admin: 06/05/18 12:47 Dose: 20 mg Pantoprazole Sodium (Protonix Ec Tab) 40 mg PO STAT STA Stop: 06/05/18 11:46 Last Admin: 06/05/18 12:48 Dose: Not Given Non-Admin Reason: repeat order Tramadol HCl (Ultram) 50 mg PO STAT STA Stop: 06/05/18 09:42 Last Admin: 06/05/18 10:56 Dose: 50 mg GEOVANNI Pain Assessment Document 06/05/18 10:56 EQ (Rec: 06/05/18 10:57 EQ [id number]) Pain Reassessment Is this a pain reassessment? No Sleep Is patient sleeping during reassessment? No Presence of Pain Presence of Pain Yes <James Hdz - Last Filed: 06/05/18 17:07> - PA / [employer] / Resident Statement / has reviewed & agrees with the documentation as recorded. <James Hdz - Last Filed: 06/05/18 17:07> Disposition/Present on Arrival - Present on Arrival Any Indicators Present on Arrival: No History of DVT/PE: No History of Uncontrolled Diabetes: No Urinary Catheter: No History Surgical Site Infection Following: None - Disposition Have Diagnosis and Disposition been Completed?: Yes Disposition Time: 11:46 Patient Plan: Discharge <Dipti Fontenot - Last Filed: 06/05/18 15:53> <James Hdz - Last Filed: 06/05/18 17:07> - Disposition Diagnosis: Plantar fasciitis, Pain, foot Disposition: HOME/ ROUTINE Condition: STABLE Discharge Instructions (ExitCare): Heel Pain (Caused by Plantar Fasciitis) (DC), Plantar Fasciitis Exercises Additional Instructions: [place] medication as prescribed Ambulate with walker only Follow up with Radiology Manager on Friday06/08/18 for re-evaluation. return to ED at any time if any worsening or new changes. Prescriptions: traMADol [Ultram] 50 mg PO BID #7 tab Referrals: Jose Roberto Hall MD [Primary Care Provider] - Follow up with primary Srinivasa Randall DPM [Staff Provider] - Follow up with primary Forms: [employer] (Tajik)
[2018-06-05 09:39] VITALS: RESP 18; TEMP 98.2
[2018-06-05 09:47] VITALS: BMI 27.3
[2018-06-05 10:14] LABS: BASO # 0.02 K/mm3 (0.0-2.0); BASO % 0.2 % (0.0-3.0); EOS % 0.1 % (1.5-5.0); GRAN # 7.47 (1.4-6.5); GRAN % 70.1 % (50.0-68.0); HEMOGLOBIN 15.9 g/dL (12.0-16.0); LYMPH # 2.2 (1.2-3.4); LYMPH % 20.7 % (22.0-35.0); MEAN CELL VOLUME 93.7 fl (80.0-105.0); MEAN CORPUSCULAR HEMOGLOBIN 31.5 pg (25.0-35.0); MEAN CORPUSCULAR HGB CONC 33.7 g/dl (31.0-37.0); MEAN PLATELET VOLUME 10.6 fl (7.0-11.0); MONO % 8.9 % (1.0-6.0); RBC 5.04 10^6/uL (3.5-6.1); RED CELL DISTRIBUTION WIDTH 14.6 % (11.5-14.5); WHITE BLOOD COUNT 10.7 10^3/ul (4.5-11.0)
[2018-06-05 11:11] LABS: INR 2.76; PARTIAL THROMBOPLASTIN TIME 39.5 Seconds (25.1-36.5); PROTHROMBIN TIME 32.4 SECONDS (9.4-12.5)
[2018-06-05 11:13] LABS: ALB/GLOB RATIO 1.6 (1.1-1.8); ALBUMIN 4.3 g/dL (3.0-4.8); ALT/SGPT 51 U/L (7-56); AST/SGOT 50 U/L (14-36); BLOOD UREA NITROGEN 19 mg/dL (7-21); CALCIUM 9.3 mg/dL (8.4-10.5); GFR NON-AFRICAN AMERICAN > 60
[2018-06-05] MEDS ORDERED: Pantoprazole 40 mg EC Tab PO STA (11:45)
--- NOTE | 2018-06-05 11:45 | RAD ---
Date of service: 06/05/2018 PROCEDURE: Left Foot Radiographs. HISTORY: pain COMPARISON: None. FINDINGS: BONES: Marked osteopenia seen throughout the left foot suggestive of relatively advanced osteoporosis. Clinically correlate further. No displaced fractures identified. Advanced osteoarthritis is appreciated throughout the digits, but mostly at the 1st metatarsophalangeal joint where there is also a severe hallux valgus deformity. Degenerative changes are also seen at the midfoot and hindfoot articulations on a moderate basis diffusely. No destructive bony lesion identified. No subluxation or dislocation identified. JOINTS: As above. SOFT TISSUES: As above. OTHER FINDINGS: Moderate plantar calcaneal spur. IMPRESSION: No acute fracture, subluxation or dislocation. Advanced osteopenia suggests prominent osteoporosis. Advanced osteoarthritis seen throughout the forefoot, especially the 1st metatarsophalangeal joint with severe hallux valgus deformity evident. Lesser degenerative changes are otherwise seen throughout the remainder of the foot. Moderate plantar calcaneal spur.
[2018-06-05] MEDS ORDERED: Pantoprazole 20 mg EC Tab PO ONE (12:31)
[2018-06-05 12:50] VITALS: PULSE 80; O2SAT 98
[2018-06-05 12:59] VITALS: BP 170/104
--- NOTE | 2018-06-07 16:30 | US ---
PROCEDURE: Left lower extremity venous US HISTORY: Leg pain and swelling. Evaluate for DVT. PHYSICIAN(S): Adams Mills MD. TECHNIQUE: Duplex sonography and color-flow Doppler with graded compression were used to evaluate the deep venous system of the left lower extremity. FINDINGS: The visualized deep venous system of the left lower extremity is sonographically normal and compressible. Normal wave forms and augmentation are seen. There is no sonographic evidence for deep venous thrombosis in the visualized segments of the left lower extremity. IMPRESSION: 1. No sonographic evidence for deep venous thrombosis in the visualized segments of the left lower extremity.
== END 2018-06-05 13:17 | disposition home or self-care (01) ==
LOC: ED 09:16
DX: M72.2 Plantar fascial fibromatosis (principal); M79.672 Pain in left foot; I10 Essential (primary) hypertension; I48.91 Unspecified atrial fibrillation; Z86.73 Personal history of transient ischemic attack (TIA), and cerebral infarction without residual deficits; Z79.01 Long term (current) use of anticoagulants; Z87.891 Personal history of nicotine dependence